=== PATIENT | male | born 2000 | race Two or more races ===

== ENCOUNTER 2022-07-05 13:22 | Emergency (ER) | payer OTHER, SELFPAY ==
[2022-07-05] VITALS (7 sets, daily range): BP systolic 102–125; BP diastolic 60–77; PULSE 57–103; RESP 16–18; TEMP 36.6; O2SAT 92–98
--- NOTE | 2022-07-05 13:25 | W.ED.SEIZURE ---
Documented by User: Wali Longo MD 07/20/22 23:30 HPI - Seizure General: Chief Complaint: Altered Mental Status Stated Complaint: Possible Seizures Time Seen by Provider: 07/05/22 13:24 History of Present Illness: HPI Narrative: Mr. Aguirre is a 21-year-old gentleman with unclear past medical history perhaps history of seizures who presents to the emergency department due to seizure-like activity. Patient himself only provides limited history. He currently complains of frontal headache and this likely relates to trauma. Per EMS report family reports a seizure last night and then 1 more today. Otherwise denies changes in health. Intensity symptoms is mild to moderate. No other specific changes in health, exacerbating, or alleviating factors identified. Per supplemental history upon mother's arrival patient is largely been at his baseline health without known specific provoking factors. He was observed on video camera while at work having a first-time seizure involving falling forward and striking his face followed by tonic extension and seizure. He subsequently had another 1 without trauma today. The one last night was significant enough to knock out 2 of his teeth.There is positive family history for seizure disorders Review of Systems General: Reports: 10 or more systems reviewed and unremarkable except in HPI and below PFSH ED PFSH: Medical History (Updated 07/20/22 @ 23:26 by Wali Longo MD) No significant past medical history Surgical History (Updated 07/20/22 @ 23:26 by Wali Longo MD) No significant past surgical history Social History (Updated 07/20/22 @ 23:26 by Wali Longo MD) Substance/Drug Use: current Physical Exam Const: COMMON NORMALS: alert GENERAL APPEARANCE: cooperative and well developed HENMT: COMMON NORMALS: normocephalic HEAD & SCALP: normocephalic THROAT: posterior oropharynx normal OTHER: Evidence of dental trauma and contusions to face. No corado signs or raccoon eyes. No hemotympanum. No otorrhea or rhinorrhea. Jaw alignment normal. No obvious bony step-offs. No septal hematoma. No evidence of ocular entrapment. Eye: COMMON NORMALS: conjunctivae normal CONJUNCTIVA: Yes conjunctivae normal SCLERA: sclerae normal Neck/C-Spine: COMMON NORMALS: supple GENERAL: Yes trachea midline Resp: COMMON NORMALS: normal respiratory effort and clear to auscultation bilaterally EFFORT & INSPECTION: Yes able to speak in complete sentences AUSCULTATION: clear to auscultation bilaterally Cardio: COMMON NORMALS: regular rate and regular rhythm RATE: regular rate RHYTHM: regular rhythm GI: COMMON NORMALS: Soft to palpation PALPATION: Yes Soft to palpation and No Tenderness to palpation present (GI) Extremity: GENERAL: Yes normal exam except as noted and No edema Neuro: COMMON NORMALS: moves all extremities SENSORIUM/ORIENTATION: Yes alert, Yes Orientation impaired and Yes somnolent Course ED course: - Patient was seen and evaluated by me at bedside - Patient placed on cardiac monitors, IV access obtained - Initial evaluation notable for exam as above, patient was postictal - Labs and xrays personally interpreted by me - Fluids, analgesia given. Haloperidol for nausea vomiting. - Labs notable for mild hemoconcentration. Mild dehydration on metabolic panel. Toxic ingestions negative, no UDS. - Imaging notable for no acute intracranial hemorrhage or fractures identified. - Patient care handed off to Dr. Hughes pending reassessment patient condition and normalization of mental status. Vital Signs: Vital signs: Vital Signs Temperature 97.8 F 07/05/22 14:28 Pulse Rate 62 07/05/22 20:04 Respiratory Rate 16 07/05/22 20:04 Blood Pressure 102/72 07/05/22 20:04 Pulse Oximetry 98 07/05/22 20:04 Oxygen Delivery Az thod 07/05/22 17:01 MDM - Seizure MDM Narrative Medical decision making narrative: 22-year-old male with new onset seizures of uncertain etiology presenting postictal. No clear etiology identified on laboratory studies and no acute traumatic injury requiring intervention identified on CTs. Handed off pending reassessment of mental status and likely already with Keppra. Patient presents here with a seizure he is back at his baseline did discuss CT findings with him we will give him follow-up with neurology likely needs a outpatient MRI we will start him on Keppra he is to follow-up with neurology return if worsening. Medical Records Attestation: I reviewed the patient's medical records. Lab Data Attestation: I reviewed the patient's lab results. Result diagrams: 07/05/22 13:34 07/05/22 13:34 Labs: Radiology Impressions Head CT 07/05/22 13:56 IMPRESSION: 1. No evidence of intracranial hemorrhage or mass effect. 2. Small amount of subpleural patchy low-attenuation change along the LEFT hopkins radiata and posterior limb internal capsule has a subacute to chronic appearance. This is nonspecific but could be followed up with MRI. This is new since 2008. 3. No other significant findings. Cervical Spine CT 07/05/22 16:13 IMPRESSION: 1. No cervical spine fracture identified. Face CT 07/05/22 16:13 IMPRESSION: 1. No fracture identified. Laboratory Results WBC 10.9 10^3/uL (4.0-10.0) H 07/05/22 13:34 RBC 5.66 10^6/uL (4.1-5.3) H 07/05/22 13:34 Hgb 14.8 g/dL (11.7-16.6) 07/05/22 13:34 Hct 47.3 % (42.0-52.0) 07/05/22 13:34 MCV 83.6 fl (80-94) 07/05/22 13:34 MCH 26.1 pg (28.0-34.0) L 07/05/22 13:34 MCHC 31.3 g/dL (30.0-36.0) 07/05/22 13:34 RDW 14.4 % (12.1-15.1) 07/05/22 13:34 Plt Count 236 10^3/cmm (130-400) 07/05/22 13:34 MPV 11.5 fL (7.4-10.4) H 07/05/22 13:34 Neut % (Auto) 77.2 % 07/05/22 13:34 Lymph % (Auto) 14.0 % 07/05/22 13:34 [place] % (Auto) 7.6 % 07/05/22 13:34 Eos % (Auto) 0.5 % 07/05/22 13:34 Baso % (Auto) 0.3 % 07/05/22 13:34 Neut # (Auto) 8.43 10^3/uL (1.8-7.7) H 07/05/22 13:34 Lymph # (Auto) 1.5 10^3/uL (0.8-4.8) 07/05/22 13:34 [place] # (Auto) 0.8 10^3/uL (0.2-0.9) 07/05/22 13:34 Eos # (Auto) 0.1 10^3/uL (0.0-0.8) 07/05/22 13:34 Baso # (Auto) 0.0 10^3/uL (0.0-0.1) 07/05/22 13:34 Nucleated RBC % (auto) 0 % 07/05/22 13:34 Nucleated RBCs # 0.0 /100WBC 07/05/22 13:34 Sodium 136 mmol/L (136-145) 07/05/22 13:34 Potassium 3.9 mmol/L (3.5-5.1) 07/05/22 13:34 Chloride 98 mmol/L (98-107) 07/05/22 13:34 Carbon Dioxide 20 mmol/L (22-29) L 07/05/22 13:34 Anion Gap 21.9 (5-19) H 07/05/22 13:34 BUN 9 mg/dL (6-20) 07/05/22 13:34 Creatinine 0.9 mg/dL (0.7-1.2) 07/05/22 13:34 GFR Calculation 106.5 mL/min (90-130) 07/05/22 13:34 Glucose 208 mg/dL (65-115) H 07/05/22 13:34 Calculated Osmolality 287 mOsm/kg (285-295) 07/05/22 13:34 Calcium 9.5 mg/dL (8.5-10.5) 07/05/22 13:34 Total Bilirubin 0.6 mg/dL (0.15-1.2) 07/05/22 13:34 AST 38 U/L (0-40) 07/05/22 13:34 ALT 13 U/L (0-41) 07/05/22 13:34 Alkaline Phosphatase 87 U/L (40-130) 07/05/22 13:34 Total Protein 8.0 g/dL (6.6-8.7) 07/05/22 13:34 Albumin 5.0 g/dL (3.5-5.2) 07/05/22 13:34 Globulin 3.0 g/dL (1.3-4.6) 07/05/22 13:34 Salicylates 1.2 mg/dL (3-10) L 07/05/22 13:34 Acetaminophen < 5.0 ug/mL (10-30) L 07/05/22 13:34 Ethyl Alcohol < 10 mg/dL (0-10) 07/05/22 13:34 Discharge Plan Discharge Patient Disposition: Home Clinical Impression: Altered mental status, New onset seizure, Head trauma, Dental trauma Condition: Stable Prescriptions: New levetiracetam 500 mg tablet extended release 24 hr 1,000 mg PO DAILY 30 Days Qty: 60 1RF amoxicillin-pot clavulanate 875-125 mg tablet 1 tab PO BID Qty: 20 0RF hydrocodone-acetaminophen 5-325 mg tablet 1 tab PO Q6H PRN (Reason: pain) Qty: 14 0RF No Action valacyclovir 500 mg tablet 500 mg PO DAILY Discharge Orders: Discharge ED (Routine); Ordered 07/05/22 Ordered By: Ike Hughes Referrals: Nicci Melendrez MD [Primary Care Provider] - Patient Instructions: Acute Dental Trauma (ED), New-Onset Seizure in Adults (ED) Activity Restrictions/Additional Instructions: Thank you for visiting the emergency department. You were seen and evaluated for new onset seizures. The exact cause of this is unclear though likely related to underlying seizure disorder and does require further outpatient evaluation. I discussed the case with Dr. Linn and he will be started on Keppra extended release. Additionally I will place order for outpatient follow-up with EEG and MRI given abnormal appearance of CT head. For general seizure precautions do not drive, operate heavy machinery, cook over open flame or grill, climb tall objects, swim in a swimming pool, take a bath in bathtub, or otherwise perform actions that would be dangerous if you were to have another seizure. For your dental trauma I recommend follow-up with a dentist. Please also follow-up with your primary care provider. Please return to the emergency department for worsening symptoms or anything else that you are concerned about a feel needs emergency department evaluation. Coding Level of Care Code ED Diesel Dinkey Operator for Chg Fwd Documented by User: Ike Hughes MD 07/05/22 19:04 HPI - Seizure General: Chief Complaint: Altered Mental Status Stated Complaint: Possible Seizures Time Seen by Provider: 07/05/22 13:24 [facility] ED PFSH: Medical History (Updated 07/20/22 @ 23:26 by Wali Longo MD) No significant past medical history Surgical History (Updated 07/20/22 @ 23:26 by Wali Longo MD) No significant past surgical history Social History (Updated 07/20/22 @ 23:26 by Wali Longo MD) Substance/Drug Use: current Course Vital Signs: Vital signs: Vital Signs Temperature 97.8 F 07/05/22 14:28 Pulse Rate 62 07/05/22 20:04 Respiratory Rate 16 07/05/22 20:04 Blood Pressure 102/72 07/05/22 20:04 Pulse Oximetry 98 07/05/22 20:04 Oxygen Delivery Me thod 07/05/22 17:01 MDM - Seizure MDM Narrative Medical decision making narrative: Patient presents here with a seizure he is back at his baseline did discuss CT findings with him we will give him follow-up with neurology likely needs a outpatient MRI we will start him on Keppra he is to follow-up with neurology return if worsening. Lab Data Result diagrams: 07/05/22 13:34 07/05/22 13:34 Labs: Radiology Impressions Head CT 07/05/22 13:56 IMPRESSION: 1. No evidence of intracranial hemorrhage or mass effect. 2. Small amount of subpleural patchy low-attenuation change along the LEFT hopkins radiata and posterior limb internal capsule has a subacute to chronic appearance. This is nonspecific but could be followed up with MRI. This is new since 2008. 3. No other significant findings. Cervical Spine CT 07/05/22 16:13 IMPRESSION: 1. No cervical spine fracture identified. Face CT 07/05/22 16:13 IMPRESSION: 1. No fracture identified. Laboratory Results WBC 10.9 10^3/uL (4.0-10.0) H 07/05/22 13:34 RBC 5.66 10^6/uL (4.1-5.3) H 07/05/22 13:34 Hgb 14.8 g/dL (11.7-16.6) 07/05/22 13:34 Hct 47.3 % (42.0-52.0) 07/05/22 13:34 MCV 83.6 fl (80-94) 07/05/22 13:34 MCH 26.1 pg (28.0-34.0) L 07/05/22 13:34 MCHC 31.3 g/dL (30.0-36.0) 07/05/22 13:34 RDW 14.4 % (12.1-15.1) 07/05/22 13:34 Plt Count 236 10^3/cmm (130-400) 07/05/22 13:34 MPV 11.5 fL (7.4-10.4) H 07/05/22 13:34 Neut % (Auto) 77.2 % 07/05/22 13:34 Lymph % (Auto) 14.0 % 07/05/22 13:34 [place] % (Auto) 7.6 % 07/05/22 13:34 Eos % (Auto) 0.5 % 07/05/22 13:34 Baso % (Auto) 0.3 % 07/05/22 13:34 Neut # (Auto) 8.43 10^3/uL (1.8-7.7) H 07/05/22 13:34 Lymph # (Auto) 1.5 10^3/uL (0.8-4.8) 07/05/22 13:34 [place] # (Auto) 0.8 10^3/uL (0.2-0.9) 07/05/22 13:34 Eos # (Auto) 0.1 10^3/uL (0.0-0.8) 07/05/22 13:34 Baso # (Auto) 0.0 10^3/uL (0.0-0.1) 07/05/22 13:34 Nucleated RBC % (auto) 0 % 07/05/22 13:34 Nucleated RBCs # 0.0 /100WBC 07/05/22 13:34 Sodium 136 mmol/L (136-145) 07/05/22 13:34 Potassium 3.9 mmol/L (3.5-5.1) 07/05/22 13:34 Chloride 98 mmol/L (98-107) 07/05/22 13:34 Carbon Dioxide 20 mmol/L (22-29) L 07/05/22 13:34 Anion Gap 21.9 (5-19) H 07/05/22 13:34 BUN 9 mg/dL (6-20) 07/05/22 13:34 Creatinine 0.9 mg/dL (0.7-1.2) 07/05/22 13:34 GFR Calculation 106.5 mL/min (90-130) 07/05/22 13:34 Glucose 208 mg/dL (65-115) H 07/05/22 13:34 Calculated Osmolality 287 mOsm/kg (285-295) 07/05/22 13:34 Calcium 9.5 mg/dL (8.5-10.5) 07/05/22 13:34 Total Bilirubin 0.6 mg/dL (0.15-1.2) 07/05/22 13:34 AST 38 U/L (0-40) 07/05/22 13:34 ALT 13 U/L (0-41) 07/05/22 13:34 Alkaline Phosphatase 87 U/L (40-130) 07/05/22 13:34 Total Protein 8.0 g/dL (6.6-8.7) 07/05/22 13:34 Albumin 5.0 g/dL (3.5-5.2) 07/05/22 13:34 Globulin 3.0 g/dL (1.3-4.6) 07/05/22 13:34 Salicylates 1.2 mg/dL (3-10) L 07/05/22 13:34 Acetaminophen < 5.0 ug/mL (10-30) L 07/05/22 13:34 Ethyl Alcohol < 10 mg/dL (0-10) 07/05/22 13:34 Discharge Plan Discharge Patient Disposition: Home Clinical Impression: Altered mental status, New onset seizure, Head trauma, Dental trauma Condition: Stable Prescriptions: New levetiracetam 500 mg tablet extended release 24 hr 1,000 mg PO DAILY 30 Days Qty: 60 1RF amoxicillin-pot clavulanate 875-125 mg tablet 1 tab PO BID Qty: 20 0RF hydrocodone-acetaminophen 5-325 mg tablet 1 tab PO Q6H PRN (Reason: pain) Qty: 14 0RF No Action valacyclovir 500 mg tablet 500 mg PO DAILY Discharge Orders: Discharge ED (Routine); Ordered 07/05/22 Ordered By: Ike Hughes Referrals: Nicci Melendrez MD [Primary Care Provider] - Patient Instructions: Acute Dental Trauma (ED), New-Onset Seizure in Adults (ED) Activity Restrictions/Additional Instructions: Thank you for visiting the emergency department. You were seen and evaluated for new onset seizures. The exact cause of this is unclear though likely related to underlying seizure disorder and does require further outpatient evaluation. I discussed the case with Dr. Linn and he will be started on Keppra extended release. Additionally I will place order for outpatient follow-up with EEG and MRI given abnormal appearance of CT head. For general seizure precautions do not drive, operate heavy machinery, cook over open flame or grill, climb tall objects, swim in a swimming pool, take a bath in bathtub, or otherwise perform actions that would be dangerous if you were to have another seizure. For your dental trauma I recommend follow-up with a dentist. Please also follow-up with your primary care provider. Please return to the emergency department for worsening symptoms or anything else that you are concerned about a feel needs emergency department evaluation. Coding Level of Care Code ED Diesel Dinkey Operator for Jah Phillips
[2022-07-05 13:47] LABS: Basophils % 0.3 %; Eosinophils # 0.1 10^3/uL (0.0-0.8); Eosinophils % 0.5 %; Hematocrit 47.3 % (42.0-52.0); Hemoglobin 14.8 g/dL (11.7-16.6); Lymphocytes # 1.5 10^3/uL (0.8-4.8); Mean Corpuscular HGB Conc 31.3 g/dL (30.0-36.0); Mean Corpuscular Hemoglobin 26.1 pg (28.0-34.0); Mean Corpuscular Volume 83.6 fl (80-94); Mean Platelet Volume 11.5 fL (7.4-10.4); Monocytes # 0.8 10^3/uL (0.2-0.9); Monocytes % 7.6 %; Neutrophils # 8.43 10^3/uL (1.8-7.7); Neutrophils % 77.2 %; Nucleated Red Blood Cells % 0 %; Platelet Count 236 10^3/cmm (130-400); Red Blood Count 5.66 10^6/uL (4.1-5.3); Red Cell Distribution Width 14.4 % (12.1-15.1); White Blood Count 10.9 10^3/uL (4.0-10.0)
--- NOTE | 2022-07-05 13:56 | CT_ITS ---
WS: [id number] CT HEAD TECHNIQUE: Noncontrast CT of the head obtained from the skullbase to the vertex. CLINICAL INFORMATION: seizure COMPARISON: 6 5,009 DLP: 1044.[address] scans at [facility] use at least one of these dose optimization techniques: automated e xposure control; mA and/or kV adjustment per patient size (includes targeted exams where dose is matc hed to clinical indication); or iterative reconstruction. FINDINGS: No evidence of intracranial hemorrhage or mass effect. Ventricular system and basal cisterns are em nt. Small amount of subtle patchy low-attenuation change along the LEFT hopkins radiata and posterior limb internal capsule has a subacute to chronic appearance. This could be followed up with MRI. This is new since 2008 Paranasal sinuses and mastoid air cells are well aerated. .Normal visualized soft tissues. CT/CT head wo con* [id number] IMPRESSION: 1. No evidence of intracranial hemorrhage or mass effect. 2. Small amount of subpleural patchy low-attenuation change along the LEFT cor lore radiata and posterior limb internal capsule has a subacute to chronic appea brian. This is nonspecific but could be followed up with MRI. This is new since 2008. 3. No other significant findings.
[2022-07-05 14:17] LABS: Alanine Aminotransferase 13 U/L (0-41); Alkaline Phosphatase 87 U/L (40-130); Anion Gap 21.9 (5-19); Aspartate Amino Transferase 38 U/L (0-40); Blood Urea Nitrogen 9 mg/dL (6-20); Calcium 9.5 mg/dL (8.5-10.5); Carbon Dioxide 20 mmol/L (22-29); Chloride 98 mmol/L (98-107); Glomerular Filtration Rate 106.5 mL/min (90-130); Glucose 208 mg/dL (65-115); Osmolality Calculated 287 mOsm/kg (285-295); Potassium 3.9 mmol/L (3.5-5.1); Salicylate 1.2 mg/dL (3-10); Sodium 136 mmol/L (136-145); Total Bilirubin 0.6 mg/dL (0.15-1.2)
[2022-07-05 14:22] LABS: Acetaminophen < 5.0 ug/mL (10-30); Alcohol Level < 10 mg/dL (0-10)
[2022-07-05] MEDS: haloperidol inj 5 mg/mL INJ 1 mL 2 MG IVP (15:01)
--- NOTE | 2022-07-05 15:08 | PC.NURSE ---
PT HAD FALLEN LAST NIGHT AT WORK AND HIT HIS FACE ON SHELVE. PT HAD SEIZURE LIKE ACTIVITY FOR APPROX 5 MIN PER VIDEO FROM MOTHER. PT HIT SHELF AND GROUND THEN STARTED TO CLINCH AND POSTURE.
--- NOTE | 2022-07-05 16:13 | CTR_ITS ---
PROCEDURE INFORMATION: Exam: CT Cervical Spine Without Contrast Exam date and time: 07/05/2022 4:31 PM Age: 21 years old Clinical indication: Injury or trauma; Fall; Blunt trauma; Additional info: Fall, head trauma, S/P seizure, fell face forward TECHNIQUE: Imaging protocol: Computed tomography of the cervical spine without contrast. Radiation optimization: All CT scans at this facility use at least one of these dose optimization techniques: automated exposure control; mA and/or kV adjustment per patient size (includes targeted exams where dose is matched to clinical indication); or iterative reconstruction. COMPARISON: CT head wo con* [id number] 07/05/2022 2:09 PM RADIATION DOSE METRICS: Total DLP (mGy-cm): 1329.77 FINDINGS: Bones/joints: No acute fracture. Normal alignment. No significant disc protrusion. No severe spinal canal stenosis. Dental: Severe dental disease with multiple cavities and upper left periapical infections. Lungs: Lung apices are normal. Soft tissues: Unremarkable. CT/CT cervical spin wo con* [id number] IMPRESSION: 1. No cervical spine fracture identified.
--- NOTE | 2022-07-05 16:13 | CTR_ITS ---
PROCEDURE INFORMATION: Exam: CT Maxillofacial Without Contrast Exam date and time: 07/05/2022 4:31 PM Age: 21 years old Clinical indication: Injury or trauma; Other: Seizure with fall to face; Blunt trauma (contusions or hematomas); Eyelid; Upper left; Additional info: Fall, head trauma TECHNIQUE: Imaging protocol: Computed tomography of the of the face without contrast. Radiation optimization: All CT scans at this facility use at least one of these dose optimization techniques: automated exposure control; mA and/or kV adjustment per patient size (includes targeted exams where dose is matched to clinical indication); or iterative reconstruction. COMPARISON: CT head wo con* [id number] 07/05/2022 2:09 PM RADIATION DOSE METRICS: Total DLP (mGy-cm): 1329.77 FINDINGS: Orbital cavities: Orbits are normal. Globes are unremarkable. Bones/joints: No acute fracture. Paranasal sinuses: Mucosal thickening in the bilateral maxillary sinuses. The other sinuses are clear. No air-fluid level. Soft tissues: Unremarkable. Dental: Multiple upper and lower dental caries. Periapical infection involving the upper left 4th tooth, 1st molar, and 3rd more. CT/CT facial bones wo con* [id number] IMPRESSION: 1. No fracture identified.
[2022-07-05] MEDS: lactated ringers 1,000 ML 999 ML IV (16:45)
[2022-07-05] MEDS: acetaminophen 1,000 MG/100 ML PIGGYBACK 400 MG IV (17:30)
--- NOTE | 2022-07-06 14:27 | DCPLANNER ---
Addendum entered by Erin Kelly 10/09/22 15:35: Patient had a follow up appointment at neurology for an EEG - patient did attend appointment Patient had a follow up appointment at neurology for follow up - patient did not attend appointment Addendum entered by Erin Kelly 07/12/22 14:42: Patient has a follow up appointment scheduled for Monday, August 08, 2022 at 10:[address] Linn at neurology. Clinic will call patient with appointment information. Addendum entered by Erin Kelly 07/11/22 08:56: Patient has an EEG scheduled for June at 8:00 for an EEG. Clinic will call patient with appointment information. Original Note: ict account manager had message to schedule an outpatient EEG and a follow up appointment for patient with neurology. ict account manager faxed a signed order to the office of neurology. ict account manager sent patients information to the front office staff at neurology. Patients information will be printed and reviewed. Clinic will call patient with appointment information.
--- NOTE | 2022-07-06 14:38 | DCPLANNER ---
Addendum entered by Erin Kelly 10/18/22 10:54: Patient did attend appointment scheduled for MRI Patient did not attend follow up appointment scheduled with [facility] with Dr. Tan. Addendum entered by Erin Kelly 07/18/22 08:10: client experience manager called [facility], spoke with Kelly, gave clinic patients information. A follow up appointment was scheduled for Tuesday, August 02, 2022 at 11:[address] Tan. client experience manager attempted to call patient and give patient the appointment information, unable to speak with patient and unable to leave a voicemail. client experience manager mailed a letter to patient with the appointment information. Addendum entered by Erin Kelly 07/10/22 10:43: client experience manager has meesage to schedule an outpatient MRI, director case spoke with patients mother who gave director case an updated phone number. client experience manager faxed signed order to centralized scheduling, who will call patient with appointment information. After the MRI is scheduled, director case will call the office of Dr. Tna to schedule a follow up appointment to go over the MRI results. Original Note: client experience manager had message to schedule an outpatient MRI and an CT head. client experience manager called patient to confirm that patient wanted to have the test ordered and to confirm who patient sees for primary care. client experience manager called phone number [phone] this is a non working number. client experience manager also called phone number [phone] - unable to speak with patient and unable to leave a voicemail for patient.
== END 2022-07-05 20:05 | disposition home or self-care (01) ==
PROVIDERS: Emergency Medicine; Emergency Provider Emergency Medicine; PCP Family Medicine
DX: R41.82 Altered mental status, unspecified (principal); R56.9 Unspecified convulsions; S09.90XA Unspecified injury of head, initial encounter; W18.30XA Fall on same level, unspecified, initial encounter; S00.83XA Contusion of other part of head, initial encounter; S03.2XXA Dislocation of tooth, initial encounter
CPT/HCPCS: 70450; 70486; 72125; 80053; 80307; 85025; 96365; 96367; 96375; 99285; J1630; J1953

== ENCOUNTER 2022-07-27 13:34 | Outpatient (CLI) | payer OTHER, SELFPAY ==
--- NOTE | 2022-07-27 13:50 | MR_ITS ---
WS: [id number] MRI HEAD WITH CONTRAST TECHNIQUE: Sagittal T1, T2 axial, T2 axial FLAIR, axial susceptibility weighted imaging, axial diffus ion weighted images, and coronal T2 images were obtained. Pre and post-T1 axial and post T1 coronal i mages. ADC and FSPGR images. CLINICAL INFORMATION: NEW ONSET SEIZURE COMPARISON: CT July 05, 2022 FINDINGS: No evidence of restricted diffusion to suggest acute ischemia. Ventricular system and basal cisterns are patent. Hazy periventricular white matter changes about the posterior lateral ventricles and occi pital horns. This is nonspecific in a patient this age but can be seen with prior infectious/inflamma tory or demyelinating etiologies. Paranasal sinuses and mastoid air cells are well aerated. Normal po sterior fossa. Normal vascular flow voids at the skull base. No extra-axial fluid collections. No ovidio dence of mass or mass effect. No hemosiderin on susceptibly weighted images. Normal optic chiasm and pituitary infundibulum. Temporal lobes and hippocampal formations are normal in appearance. No evidence of mesial temporal sclerosis. No abnormal intracranial enhancement. Normal dural venous sinuses. Incidental LEFT middle cranial fos sa arachnoid cyst measuring 1.1 x 2.1 x 1.6 cm MR/MR head wo/w con [id number] IMPRESSION: 1. No evidence of restricted diffusion to suggest acute ischemia. 2. Mild hazy periventricular white matter changes about the posterior lateral ventricles and occipital horns. Findings are nonspecific in a patient this age but can be seen with prior infectious or inflammatory etiologies and demyelinat ing disease. Recommend clinical correlation. 3. No significant parenchymal volume loss. 4. No hemosiderin on the susceptibly weighted images. 5. Temporal lobes and hippocampal formations are normal in appearance. No evid ence of mesial temporal sclerosis. 6. No abnormal gadolinium enhancement. 7. Incidental LEFT middle cranial fossa arachnoid cyst measuring 1.1 x 2.1 x 1 .6 cm
[2022-07-27] MEDS: gadobenate dimeglumine 20 mL vial IV (14:38)
== END 2022-07-27 13:35 | disposition home or self-care (01) ==
PROVIDERS: Visit Provider Emergency Medicine
DX: R56.9 Unspecified convulsions (principal)
CPT/HCPCS: 70553

== ENCOUNTER 2022-12-03 19:21 | Inpatient (IN) | payer OTHER, SELFPAY ==
[2022-12-03 19:25] VITALS: RESP 15; BMI 17.4
--- NOTE | 2022-12-03 19:26 | XRR_ITS ---
PROCEDURE INFORMATION: Exam: XR Chest Exam date and time: 12/03/2022 8:20 PM Age: 22 years old Clinical indication: Device placement; Ett placement (vent status); Additional info: Unresponsive TECHNIQUE: Imaging protocol: Radiologic exam of the chest. Views: 1 view. COMPARISON: CT cervical spin wo con* [id number] 07/05/2022 4:31 PM FINDINGS: Tubes, catheters and devices: Endotracheal tube tip somewhat high in position 7.3 cm above the eleazar. Lungs: Right upper lobe pneumonia. Pleural spaces: Unremarkable. No pleural effusion. No pneumothorax. Heart/Mediastinum: Unremarkable. No cardiomegaly. Bones/joints: Unremarkable. XR/XR chest 1V portable [id number] IMPRESSION: 1. Endotracheal tube tip somewhat high in position 7.3 cm above the eleazar. 2. Right upper lobe pneumonia.
--- NOTE | 2022-12-03 19:26 | CTR_ITS ---
PROCEDURE INFORMATION: Exam: CT Head Without Contrast Exam date and time: 12/03/2022 8:29 PM Age: 22 years old Clinical indication: Other: Unresponsive, intubated TECHNIQUE: Imaging protocol: Computed tomography of the head without contrast. Radiation optimization: All CT scans at this facility use at least one of these dose optimization techniques: automated exposure control; mA and/or kV adjustment per patient size (includes targeted exams where dose is matched to clinical indication); or iterative reconstruction. Other protocol: This patient has received 3 known CTs and 0 known cardiac nuclear medicine studies in the 12 months prior to the current study. COMPARISON: MR head wo/w con [id number] 07/27/2022 2:03 PM RADIATION DOSE METRICS: Total DLP (mGy-cm): 1204.8 FINDINGS: Brain: Minimal decreased attenuation of the periventricular white matter largely in the left hopkins radiata similar to prior exam likely chronic,. 16 mm extra-axial prominent fluid density in the anterior aspect of the left middle cranial fossa, similar to prior exam suggestive of a small arachnoid cyst. Cerebral ventricles: No ventriculomegaly. Paranasal sinuses: Visualized sinuses are unremarkable. No fluid levels. Mastoid air cells: Visualized mastoid air cells are well aerated. Bones/joints: Unremarkable. No acute fracture. Soft tissues: Unremarkable. CT/CT head wo con* [id number] IMPRESSION: 1. Negative for intracranial hemorrhage. 2. Minimal decreased attenuation of the periventricular white matter largely in the left hopkins radiata similar to prior exam likely chronic, 3. 16 mm extra-axial prominent fluid density in the anterior aspect of the left middle cranial fossa, similar to prior exam suggestive of a small arachnoid cyst.
[2022-12-03 19:31] LABS: ABG PCO2 57.6 mmHg (35-45); ABG PH Result 7.23 (7.35-7.45); Arterial Blood Gas Hematocrit 38.7 % (42-52); Base Excess ABG -4.3 mmol/L (-2.0-2.0); Blood Gas Allen Test Pos; Blood Gas Sample Site Radial, right; Blood Gas Sample Type Arterial; Blood Gas Tidal Volume 0.45; Oxygen Device VENT
[2022-12-03 19:35] LABS: Basophils # 0.1 10^3/uL (0.0-0.1); Basophils % 0.4 %; Eosinophils # 0.2 10^3/uL (0.0-0.8); Hematocrit 40.5 % (42.0-52.0); Lymphocytes # 2.2 10^3/uL (0.8-4.8); Lymphocytes % 14.3 %; Mean Corpuscular HGB Conc 29.6 g/dL (30.0-36.0); Mean Corpuscular Hemoglobin 25.1 pg (28.0-34.0); Mean Corpuscular Volume 84.7 fl (80-94); Mean Platelet Volume 12.8 fL (7.4-10.4); Monocytes # 0.2 10^3/uL (0.2-0.9); Monocytes % 1.5 %; Neutrophils # 12.78 10^3/uL (1.8-7.7); Neutrophils % 81.8 %; Nucleated Red Blood Cells % 0 %; Platelet Count 230 10^3/cmm (130-400); Red Blood Count 4.78 10^6/uL (4.1-5.3); Red Cell Distribution Width 14.5 % (12.1-15.1); White Blood Count 15.6 10^3/uL (4.0-10.0)
[2022-12-03] MEDS: propofol 1,000 MG/100 ML INJ 1.76 MG IV (19:38)
[2022-12-03] MEDS: sodium chloride 0.9% 1,000 ML 999 ML IV ×2 (19:42→20:40)
[2022-12-03 19:43] LABS: Ketone (Acetest) Serum Negative (Negative)
[2022-12-03 19:47] LABS: Add Urine Microscopic? NO; Charge for UA Resulting for Rev
[2022-12-03 19:51] LABS: Troponin(5th) Baseline 48 ng/L (0-15)
[2022-12-03 19:52] LABS: Alanine Aminotransferase 10 U/L (0-41); Alkaline Phosphatase 92 U/L (40-130); Anion Gap 17.2 (5-19); Aspartate Amino Transferase 13 U/L (0-40); Blood Urea Nitrogen 11 mg/dL (6-20); Calcium 7.8 mg/dL (8.5-10.5); Carbon Dioxide 24 mmol/L (22-29); Chloride 102 mmol/L (98-107); Creatine Phosphokinase 69 U/L (39-308); Globulin 2.2 g/dL (1.3-4.6); Glomerular Filtration Rate 105.5 mL/min (90-130); Glucose 359 mg/dL (65-115); Magnesium 1.9 mg/dL (1.7-2.3); Osmolality Calculated 302 mOsm/kg (285-295); Phosphorus 6.7 mg/dL (2.5-4.5); Potassium 4.2 mmol/L (3.5-5.1); Sodium 139 mmol/L (136-145); Total Bilirubin 0.3 mg/dL (0.15-1.2); Total Protein 6.2 g/dL (6.6-8.7)
[2022-12-03 19:53] LABS: Glucose Urine UA 4+ (Normal); Protein Urine Neg (Negative); Urine Appearance Clear (CLEAR); Urine Color Colorless (Yellow); pH Urine 6 (5-7)
[2022-12-03 19:54] LABS: Bilirubin Urine Neg (Negative); Blood Urine Neg (Negative); Ketones Urine Negative (Negative); Leukocyte Esterase Urine Negative (Negative); Nitrate Urine Negative (Negative); Urobilinogen Urine Neg (Negative)
[2022-12-03 19:54] LABS: Alcohol Level < 10 mg/dL (0-10)
[2022-12-03 20:00] VITALS: PULSE 69; RESP 18; O2SAT 100
[2022-12-03 20:10] LABS: Amphetamines Screen Urine Negative (Negative); Barbiturates Screen Urine Negative (Negative); Benzodiazepines Screen Urine Positive (Negative); Cocaine Screen Urine Negative (Negative); Opiate Screen Urine Negative (Negative); PCP Screen Urine Negative (Negative); THC Screen Urine Positive (Negative)
[2022-12-03 20:14] LABS: Influenza A by IFA negative (Negative); Influenza B by IFA negative (Negative); SARS Covid-2 Antigen negative (Negative)
[2022-12-03] MEDS: midazolam 1 mg/mL INJ 2 mL 3 MG IVP (20:21)
--- NOTE | 2022-12-03 20:44 | W.ED.GENADLT ---
HPI - General Adult General: Chief complaint: General Medical Stated complaint: dka Time Seen by Provider: 12/03/22 19:22 Source: EMS History of Present Illness: 22-year-old male presenting after being found unresponsive by his parents. The patient would not wake to sternal rub evidently. He maintained a pulse. EMS was called. The patient did not respond to IV Narcan, and had an initial pulse ox in the 30 percent range. He was successfully bagged up to the 80s using bag valve mask, and intubated following. Blood sugar was found to be in the 400s on arrival of EMS. He has no history of diabetes. He does have a history of seizure disorder. Unknown if the patient has missed medication. Onset (ago): minute(s) Radiation: other Quality: other Pain Consistency: other Relieving factors: other Exacerbating factors: other Treatments prior to arrival: other Review of Systems General: Reports: ROS unobtainable due to endotracheal tube, ROS unobtainable due to medical condition and ROS unobtainable due to mental status [facility] ED PFSH: Medical History No significant past medical history Psychiatric care Social anxiety disorder Surgical History No significant past surgical history Physical Exam Const: ORIENTATION/CONSCIOUSNESS: Yes Other orientation findings (Unresponsive) HENMT: COMMON NORMALS: normocephalic, hearing grossly normal bilaterally and Normal external nose present HEAD & SCALP: normocephalic FACE & SINUS: normal facial exam NOSE: Normal external nose present Eye: PUPIL: Yes Fixed pupils (Small) and Yes Pupils not reactive Neck/C-Spine: GENERAL: Yes trachea midline Chest: CHEST: Yes Symmetrical chest wall rise Resp: COMMON NORMALS: clear to auscultation bilaterally AUSCULTATION: clear to auscultation bilaterally Cardio: COMMON NORMALS: regular rate and regular rhythm RATE: regular rate RHYTHM: regular rhythm GI: COMMON NORMALS: Soft to palpation INSPECTION: Yes normal to inspection PALPATION: Yes Soft to palpation : PENIS: normal penis Extremity: COMMON NORMALS: no pedal edema Neuro: CARRIE COMA SCALE: document GCS findings Carrie coma scale eye opening: None Carrie coma scale motor response: None Skin: COMMON NORMALS: no rashes or lesions noted GENERAL SKIN EXAM: no rashes or lesions noted Course Vital Signs: Vital signs: Vital Signs Pulse Rate 53 L 12/03/22 22:00 Respiratory Rate 18 12/03/22 22:00 Blood Pressure 98/69 12/03/22 22:00 Pulse Oximetry 100 12/03/22 22:00 Oxygen Delivery Me thod 12/04/22 00:15 Fraction of Inspir ed Oxygen 90 12/03/22 19:25 MDM - General Adult Medical Decision Making Patient presents intubated and sedated. No purposeful movements.He is kept on sedation using propofol and fentanyl. CBC shows a white blood cell count of 15.6. BMP shows a blood sugar of 359. Anion gap is only 17. Lactate is 4. Blood gas shows a pH of 7.23 with PCO2 retention of 58. Normal bicarbonate of 24. His CRP is only 3. Drug screen is positive for benzodiazepines, which the patient is prescribed. Serum ketones is negative. Flu and COVID are negative.Head CT appears nonacute. The patient has a right upper lobe pneumonia on chest x-ray. He is given vancomycin and cefepime for this after blood cultures. We have no neurology here. We have no critical care currently. Given his young age, we will attempt transfer to a higher level of care given these facts. Family is counseled. Spoke with [facility] in [place]. I have no ICU beds available. Did speak with [facility] in [place]. They have an ICU bed available. [facility] is willing to take patient in transfer with neurology consult there. Awaiting a bed assignment for transfer. Patient's blood sugar is now 100. Somewhat strange. Blood gases improved. Current vitals heart rate 58, blood pressure 101/72. Saturations are 100% After the patient been accepted at [facility], and report to the ICU was called. Air transport was called for EMS transport to the ICU. In the meantime, the patient continued to be somewhat bradycardic. This was concerning, so low-dose phenylephrine was started. Shortly after starting the phenylephrine for what ever reason, the patient woke up. He was completely awake, asked for a pen and paper so that he could write. He admitted to taking his brothers methadone, because he was worried about withdrawing from Xanax he says. The patient was completely alert and oriented, asking for water, etc. while on the ventilator. At this point, the cause was determined. He wished to be extubated. As he was making sense, essentially with a completely intact sensorium, extubation was performed in the ER. He did well for 30 minutes on nasal cannula oxygenation at low-dose. Following this, he began to get sleepy again, and oxygen saturations dropped. He was placed on 10 L nonrebreather, and 1 mg of Narcan was given with resolution of his sleepiness, and improvement in his hypoxia although it caused some tachycardia. He was given a breathing treatment with improvement in his pulse ox as well. His sensorium remained intact. We spoke with [facility], and canceled his ICU bed there, since it did not appear neurology was needed at this point as we had a cause. He will go to the ICU here tonight for observation and continued respiratory support. Narcan drip was started given the long half-life of methadone. Lab Data 12/03/22 19:12/03/22 Radiology Impressions Chest X-Ray 12/03/22 IMPRESSION: 1. Endotracheal tube tip somewhat high in position 7.3 cm above the eleazar. 2. Right upper lobe pneumonia. Head CT 12/03/22 IMPRESSION: 1. Negative for intracranial hemorrhage. 2. Minimal decreased attenuation of the periventricular white matter largely in the left hopkins radiata similar to prior exam likely chronic, 3. 16 mm extra-axial prominent fluid density in the anterior aspect of the left middle cranial fossa, similar to prior exam suggestive of a small arachnoid cyst. Laboratory Results WBC 15.6 10^3/uL (4.0-10.0) H 12/03/22: RBC 4.78 10^6/uL (4.1-5.3) 12/03/22 Hgb 12.0 g/dL (11.7-16.6) 12/03/22 Hct 40.5 % (42.0-52.0) L 12/03/22 MCV 84.7 fl (80-94) 12/03/22 MCH 25.1 pg (28.0-34.0) L 12/03/22 MCHC 29.6 g/dL (30.0-36.0) L 12/03/22 RDW 14.5 % (12.1-15.1) 12/03/22 19:21 Plt Count 230 10^3/cmm (130-400) 12/03/22 19:21 MPV 12.8 fL (7.4-10.4) H 12/03/22 19:21 Neut % (Auto) 81.8 % 12/03/22 19:21 Lymph % (Auto) 14.3 % 12/03/22 19:21 Latimer % (Auto) 1.5 % 12/03/22 19:21 Eos % (Auto) 1.0 % 12/03/22 19:21 Baso % (Auto) 0.4 % 12/03/22 19:21 Neut # (Auto) 12.78 10^3/uL (1.8-7.7) H 12/03/22 19:21 Lymph # (Auto) 2.2 10^3/uL (0.8-4.8) 12/03/22 19:21 Latimer # (Auto) 0.2 10^3/uL (0.2-0.9) 12/03/22 19:21 Eos # (Auto) 0.2 10^3/uL (0.0-0.8) 12/03/22 19:21 Baso # (Auto) 0.1 10^3/uL (0.0-0.1) 12/03/22 19:21 Nucleated RBC % (auto) 0 % 12/03/22 19: Nucleated RBCs # 0.0 /100WBC 12/03/22 19:21 D-Dimer 0.50 ug/mIFEU (0-0.59) 12/03/22 19:21 Specimen Type Arterial 12/03/22 20:42 Sample Site Radial, right 12/03/22 20:42 ABG pH 7.38 (7.35-7.45) 12/03/22 20:42 ABG pCO2 40.9 mmHg (35-45) 12/03/22 20:42 ABG pO2 79.7 mmHg (80.0-100.0) L 12/03/22 20:42 ABG HCO3 24.0 mmol/L (22-26) 12/03/22 20:42 ABG Base Excess -1.2 mmol/L (-2.0-2.0) 12/03/22 20:42 Nicholas Test Pos 12/03/22 20:42 Hematocrit 38.4 % (42-52) L 12/03/22 20:42 O2 Delivery Device Vent 12/03/22 20:42 FiO2 70.0 % 12/03/22 20:42 Tidal Volume 0.45 12/03/22 19:23 PEEP 8.0 cmH20 12/03/22 20:42 Director Of Public Health ID Amanda 12/03/22 20:42 Sodium 139 mmol/L (136-145) 12/03/22 19:21 Potassium 4.2 mmol/L (3.5-5.1) 12/03/22 19:21 Chloride 102 mmol/L (98-107) 12/03/22 19:21 Carbon Dioxide 24 mmol/L (22-29) 12/03/22 19:21 Anion Gap 17.2 (5-19) 12/03/22 19:21 BUN 11 mg/dL (6-20) 12/03/22 19:21 Creatinine 0.9 mg/dL (0.7-1.2) 12/03/22 19:21 GFR Calculation 105.5 mL/min (90-130) 12/03/22 19:21 Glucose 359 mg/dL (65-115) H 12/03/22 19:21 POC Glucose 100 mg/dL (70-110) 12/03/22 21:30 Calculated Osmolality 302 mOsm/kg (285-295) H 12/03/22 19:21 Lactate 4.0 mmol/L (0.5-2.2) H 12/03/22 19:21 Calcium 7.8 mg/dL (8.5-10.5) L 12/03/22 19:21 Phosphorus 6.7 mg/dL (2.5-4.5) H 12/03/22 19:21 Magnesium 1.9 mg/dL (1.7-2.3) 12/03/22 19:21 Total Bilirubin 0.3 mg/dL (0.15-1.2) 12/03/22 19:21 AST 13 U/L (0-40) 12/03/22 19:21 ALT 10 U/L (0-41) 12/03/22 19:21 Alkaline Phosphatase 92 U/L (40-130) 12/03/22 19:21 Creatine Kinase 69 U/L (39-308) 12/03/22 19:21 Troponin T Baseline 48 ng/L (0-15) H 12/03/22 19:21 Troponin T 120 Minute 64.11 ng/L (0-15) H 12/03/22 21:21 Delta Troponin T 16.11 ABS# (0-10) H* 12/03/22 21:21 C-Reactive Protein 3.0 mg/L (0.0-4.9) 12/03/22 19:21 Total Protein 6.2 g/dL (6.6-8.7) L 12/03/22 19:21 Albumin 4.0 g/dL (3.5-5.2) 12/03/22 19:21 Globulin 2.2 g/dL (1.3-4.6) 12/03/22 19:21 Urine Color Colorless (Yellow) 12/03/22 19:38 Urine Appearance Clear (CLEAR) 12/03/22 19:38 Urine pH 6 (5-7) 12/03/22 19:38 Ur Specific [place] 1.010 (1.005-1.030) 12/03/22 19:38 Urine Protein Neg (Negative) 12/03/22 19:38 Urine Glucose (UA) 4+ (Normal) H 12/03/22 19:38 Urine Ketones Negative (Negative) 12/03/22 19:38 Urine Blood Neg (Negative) 12/03/22 19:38 Urine Nitrate Negative (Negative) 12/03/22 19:38 Urine Bilirubin Neg (Negative) 12/03/22 19:38 Urine Urobilinogen Neg mg/dL (Negative) 12/03/22 19:38 Ur Leukocyte Esterase Negative (Negative) 12/03/22 19:38 Urine Opiates Screen Negative ng/mL (Negative) 12/03/22 19:38 Ur Barbiturates Screen Negative ng/mL (Negative) 12/03/22 19:38 Ur Phencyclidine Scrn Negative ng/mL (Negative) 12/03/22 19:38 Ur Amphetamines Screen Negative ng/mL (Negative) 12/03/22 19:38 U Benzodiazepines Scrn Positive ng/mL (Negative) H 12/03/22 19:38 Urine Cocaine Screen Negative ng/mL (Negative) 12/03/22 19:38 U Marijuana (THC) Screen Positive ng/mL (Negative) H 12/03/22 19:38 Ethyl Alcohol < 10 mg/dL (0-10) 12/03/22 19:21 Serum Ketones Negative (Negative) 12/03/22 19:21 Influenza Type A Ag negative (Negative) 12/03/22 19:45 Influenza Type B Ag negative (Negative) 12/03/22 19:45 SARS-CoV-2 Ag (Rapid) negative (Negative) 12/03/22 19:45 Critical Care Time Critical Care Time: Critical Care Time: Yes Total Critical Care Time: 50 Attestation: This case had a high probability of a clinically significant, sudden, or life threatening deterioration of this patient's condition which required my full and direct attention, intervention and personal management. Time is independent of any procedures performed. Discharge Plan Discharge Patient Disposition: Admitted As Inpatient Admit Provider: Brenden Mosquera Clinical Impression: Acute respiratory failure with hypoxia and hypercapnia, Opiate or related narcotic overdose Condition: Fair Coding Level of Care Code ED Dining Room Supervisor for Chg Fwd Exam Comprehensive
[2022-12-03 20:54] LABS: ABG PCO2 40.9 mmHg (35-45); ABG PH Result 7.38 (7.35-7.45); Arterial Blood Gas Hematocrit 38.4 % (42-52); Base Excess ABG -1.2 mmol/L (-2.0-2.0); Blood Gas Allen Test Pos; Blood Gas Sample Site Radial, right; Blood Gas Sample Type Arterial; Oxygen Device VENT; PO2 ABG 79.7 mmHg (80.0-100.0)
[2022-12-03 21:00] VITALS: BP 98/68; PULSE 64; RESP 18; O2SAT 100
[2022-12-03] MEDS: cefepime 1,000 MG in sodium chloride 0.9% (plus) 50 ML 100 MG IV (21:02)
[2022-12-03] MEDS: vancomycin 1,000 MG in sodium chloride 0.9% 250 ML 250 MG IV (21:02)
--- NOTE | 2022-12-03 21:28 | ECG_ITS ---
[facility] Test Date: 2022-12-03 Pat Name: Orlin Aguirre Department: Room: Gender: Male Nondestructive Tester: : 2000 Requested By: Latrell Wilcox Order Number: [id number] Shana MD: Eri Montanez M.D. Measurements Intervals [place] Rate: 57 P: 79 [place]: 134 QRS: 81 QRSD: 102 T: 72 QT: 468 QTc: 457 Interpretive Statements SINUS BRADYCARDIA MINIMAL VOLTAGE CRITERIA FOR LVH, CONSIDER NORMAL VARIANT [MEETS CRITERIA IN ONE OF: R(aVL), S(V1), R(V5), R(V5/V6)+S(V1)] PROLONGED QT INTERVAL No previous ECG available for comparison Electronically Signed On 12-04-2022 22:23:48 VASCULAR SURGERY PHYSICIAN by Eri Montanez M.D. [email or web address]
[2022-12-03 21:33] LABS: Glucose Point of Care 100 mg/dL (70-110)
[2022-12-03 21:57] LABS: Troponin 5 2HR 64.11 ng/L (0-15)
[2022-12-03 22:00] VITALS: BP 98/69; PULSE 53; RESP 18; O2SAT 100
[2022-12-03 22:01] LABS: Troponin 5 2HR Delta 16.11 ABS# (0-10)
[2022-12-03] MEDS: sodium chloride 0.9% 250 ML 200 ML IV (22:29)
[2022-12-03] MEDS: phenylephrine inj 25 MG in sodium chloride 0.9% 250 ML 24.24 MG IV (22:52)
--- NOTE | 2022-12-03 23:26 | P.HP_ITS ---
Providers/Chief Complaint Admitting Physician: Brenden Mosquera MD Primary Care Provider: Nicci Melendrez MD Chief Complaint: dka History of Present Illness Orlin Aguirre is a 22 year old male with a past medical history significant for seizure disorder, anxiety, and marijuana use who presents with unresponsiveness after being found by his parents at home. EMS was called patient was given IV Narcan without initial response. His reported SPO2 in the field was 30%. He was bagged and then intubated. He was found to have hyperglycemia with blood sugars in the 400s per EMS. He has no known history of diabetes. Patient reportedly took his brothers methadone earlier today. Is unclear how much he took. He apparently was trying to get off of his Xanax but was afraid of withdrawal symptoms. Mentation initially improved in the emergency department for which extubation was performed. This was followed by worsening hypoxia and decreasing mentation as time went on. Additional Narcan push with some improvement in hypoxia followed by Narcan drip initiated. Patient remains very lethargic and unable to provide further history on my evaluation. Attempted to obtain past medical, past surgical, social, and family history however his clinical status limited further history. Family not currently present for collateral information but is supposed to be returning later tonight. Review of Systems Narrative: Attempted to obtain a complete review of systems but was unable to due to patient's severe lethargy. Medications/Allergies Home Medications Medication Instructions Recorded Confirmed Last Taken Type levetiracetam 500 mg 1,000 mg PO DAILY 30 days #60 tabs 07/05/22 10/26/22 Unknown Rx tablet,extended release 24 hr alprazolam 0.5 mg tablet 0.5 mg PO TID PRN anxiety 14 days 10/26/22 10/26/22 Unk nown Rx #42 tabs famotidine 20 mg tablet 20 mg PO BID #60 tabs 10/26/22 10/26/22 Unknown Rx Allergies Allergy/AdvReac Type Severity Reaction Status Date / Time No Known Allergies Allergy Verified 10/26/22 11:47 PFSH Acute PFSH: Medical History No significant past medical history Psychiatric care Social anxiety disorder Surgical History No significant past surgical history Vitals/I&O/Wt Last Vital Signs Resp 15 12/03/22 19:25 FiO2 90 12/03/22 19:25 12/03/22 12/03/22 12/04/22 14:59 22:59 06:59 Intake Total 2266.668 / 2266.668 Balance 2266.668 / 2266.668 Weight last 48 hrs Weight 58.513 kg Physical Exam Narrative: General: Patient is lethargic. Head: Normocephalic. Atraumatic. Dry mucous membranes. Neck: No JVD. Cardiovascular: Tachycardic. No gallops. No murmurs. No peripheral edema. Lungs: Poor air movement, no use of accessory muscles, no crackles or wheezes. Rhonchi in right upper lung field. Skin: No jaundice. No rashes. Abdomen: Hypoactive bowel sounds, abdomen soft and nontender. Genito Urinary: Bartlett catheter. Rectal: Rectal exam not performed since no symptoms indicated blood loss. Extremities: No cyanosis or clubbing. Musculoskeletal: No swollen or erythematous joints. Neurological: Lethargic. No myoclonus. Urinary Catheter Management: Bartlett: Cath Placed During This Visit: yes Urinary Catheter Date of Insertion: 12/03/22 Urinary Catheter Time of Insertion: 20:46 Data 12/03/22 19:21 12/03/22 19:21 Micro: Microbiology 12/03/22 19:53 Blood Culture - Preliminary Blood SPECIMEN COLLECTED 12/03/22 19:48 Blood Culture - Preliminary Blood SPECIMEN COLLECTED A&P Assessment and plan (1) Acute respiratory failure with hypoxia: Secondary to methadone overdose and aspiration pneumonia Continue supplemental oxygen support Treat underlying overdose Antibiotics as below (2) Opiate or related narcotic overdose: Continue Narcan drip (3) Hyperglycemia: No known history of diabetes Suspect secondary to stress response A1c ordered Low-dose sliding scale insulin correction (4) Aspiration pneumonia: Status post vancomycin and cefepime in the emergency department Start Unasyn Procalcitonin ordered (5) Acute encephalopathy: Acute toxic encephalopathy Treat underlying opiate overdose Monitor mentation closely Head CT reviewed, negative for acute findings Frequent reorientation (6) Seizure: Continue home Keppra (7) Social anxiety disorder: Hold home Xanax Consider maintenance medication prior to discharge (8) Lactic acid acidosis: Status post IV fluid resuscitation in the emergency department (9) Hyperphosphatemia: Repeat electrolytes in a.m. Plan DVT prophylaxis: Lovenox CODE STATUS: Full code Attestations Medical Necessity Statement*: Patient presents in respiratory failure secondary to opiate overdose complicated by aspiration pneumonia with expected hospitalization to cross 2 midnights. Critical Care Time: The high probability of a clinically significant, sudden or life threatening deterioration of the patient's respiratory system(s) required my full and direct attention, intervention and personal management. The critical care time is as shown. This time is in addition to time spent performing any reported procedures but includes the following: [x] Data and vital sign review and interpretation [x] Patient assessment, examination and intervention [x] Documentation [x] Medication orders and management Critical Care Time (min): 35 Coding Level of Care Code Acute Code for [facility] Fwd Diagnoses Acute respiratory failure with hypoxia J96.01 Opiate or related narcotic overdose T40.601A Hyperglycemia R73.9 Aspiration pneumonia J69.0 Acute encephalopathy G93.40 Seizure R56.9 Social anxiety disorder F40.10 Lactic acid acidosis E87.20 Hyperphosphatemia E83.39
--- NOTE | 2022-12-03 23:26 | PC.RESP ---
Patient was extubated at 2315 to room air. No respiratory distress noted at this time.
[2022-12-03] MEDS: ipratropium-albuterol 3 mL Neb INHALATION (23:50)
[2022-12-03] MEDS: naloxone 2 MG in sodium chloride 0.9% (100 ml) 100 ML 20.4 MG IV (23:51)
[2022-12-04] VITALS (75 sets, daily range): BP systolic 95–122; BP diastolic 57–86; PULSE 66–99; RESP 13–33; TEMP 37.1–37.5; O2SAT 84–100; BMI 17.4
[2022-12-04] MEDS: ampicillin-sulbactam 3 GM in sodium chloride 0.9% (plus) 50 ML IV ×4 (01:35→17:17)
[2022-12-04] MEDS: enoxaparin 40 mg/0.4 mL Syringe SUBCUT (01:40)
[2022-12-04 02:07] LABS: Basophils % 0.2 %; Eosinophils % 0.4 %; Hematocrit 36.2 % (42.0-52.0); Hemoglobin 11.3 g/dL (11.7-16.6); Lymphocytes # 2.1 10^3/uL (0.8-4.8); Lymphocytes % 21.4 %; Mean Corpuscular HGB Conc 31.2 g/dL (30.0-36.0); Mean Corpuscular Hemoglobin 25.5 pg (28.0-34.0); Mean Corpuscular Volume 81.7 fl (80-94); Mean Platelet Volume 12.7 fL (7.4-10.4); Monocytes # 0.5 10^3/uL (0.2-0.9); Monocytes % 4.7 %; Neutrophils % 72.9 %; Nucleated Red Blood Cells % 0 %; Platelet Count 205 10^3/cmm (130-400); Red Blood Count 4.43 10^6/uL (4.1-5.3); Red Cell Distribution Width 14.6 % (12.1-15.1); White Blood Count 9.6 10^3/uL (4.0-10.0)
[2022-12-04 02:35] LABS: Troponin 5 6HR 45.11 ng/L (0-15)
[2022-12-04 02:36] LABS: Alanine Aminotransferase 7 U/L (0-41); Albumin Level 3.7 g/dL (3.5-5.2); Alkaline Phosphatase 79 U/L (40-130); Anion Gap 10.7 (5-19); Aspartate Amino Transferase 12 U/L (0-40); Blood Urea Nitrogen 7 mg/dL (6-20); Calcium 7.7 mg/dL (8.5-10.5); Carbon Dioxide 23 mmol/L (22-29); Chloride 106 mmol/L (98-107); Glomerular Filtration Rate 168.5 mL/min (90-130); Glucose 56 mg/dL (65-115); Osmolality Calculated 280 mOsm/kg (285-295); Phosphorus 1.9 mg/dL (2.5-4.5); Sodium 137 mmol/L (136-145); Total Bilirubin 0.2 mg/dL (0.15-1.2); Total Protein 5.7 g/dL (6.6-8.7)
[2022-12-04 02:42] LABS: Procalcitonin 1.97 ng/mL (0-0.5)
[2022-12-04 02:45] LABS: Troponin 5 6HR Delta -2.89 ng/L (0-12)
[2022-12-04 02:49] LABS: Potassium 2.7 mmol/L (3.5-5.1)
[2022-12-04 03:20] LABS: Estmated Average Glucose 91; Hemoglobin A1C 4.8 % (4.0-6.0)
[2022-12-04] MEDS: potassium chloride ER 20 mEq Tablet 40 MEQ PO (03:20)
[2022-12-04] MEDS: naloxone 2 MG in sodium chloride 0.9% (100 ml) 100 ML 20.4 MG IV ×3 (04:48→15:11)
[2022-12-04 06:19] LABS: Glucose Point of Care 80 mg/dL (70-110)
[2022-12-04 07:10] LABS: Glucose Point of Care 93 mg/dL (70-110)
[2022-12-04] MEDS: famotidine 20 mg Tablet PO ×2 (08:41→17:14)
[2022-12-04] MEDS: levETIRAcetam 500 mg Tablet 1000 MG PO (08:41)
--- NOTE | 2022-12-04 08:51 | USCV_ITS ---
Orlin Aguirre Age: 22 Gender: M : 2000 Exam Date: 12/04/2022 09:40 Ordering Phys: Raul Alfaro MD Technologist: Baudilio Leach [place] [facility] [place]: BP: 120 / 74 HR: 64 Rhythm: Sinus Technical Quality: Adequate MEASUREMENTS (Male / Female) Normal Values 2D ECHO LV Diastolic Diameter PLAX 5.0 cm 4.2 - 5.9 / 3.9 - 5.3 cm LV Systolic Diameter PLAX 3.3 cm IVS Diastolic Thickness 1.0 cm 0.6 - 1.0 / 0.6 - 0.9 cm IVS Systolic Thickness 1.8 cm LVPW Diastolic Thickness 1.0 cm 0.6 - 1.0 / 0.6 - 0.9 cm LVPW Systolic Thickness 1.6 cm LVOT Diameter 2.1 cm LV Ejection Fraction 2D Teich 64.1 % LA Diameter 3.0 cm IVC Diameter 1.4 cm M-MODE Aortic Annulus Diameter 3.2 cm LA Ao Ratio MM 1.1 MV E Point Septal Separation 1.0 cm DOPPLER AV Peak Velocity 125.0 cm/s LVOT Peak Velocity 105.0 cm/s AV Area Cont Eq vti 3.0 cm squared AV Area Cont Eq pk 2.9 cm squared MV Area PHT 4.4 cm squared Mitral E to A Ratio 1.8 MV E' Velocity 58.0 cm/s Mitral E to MV E' Ratio 5.3 Mitral E to LV E' Lateral Ratio 4.9 Mitral E to LV E' Septal Ratio 5.7 TR Peak Velocity 233.0 cm/s TR Peak Gradient 21.7 mmHg TV Peak E Velocity 87.0 cm/s Right Atrial Pressure 3.0 mmHg Pulmonary Artery Systolic Pressu 24.7 mmHg RV Acceleration Time 0.2 s FINDINGS Left Ventricle Left ventricle is normal in size. LV systolic function is normal with EF of 55-60%. No regional wall motion abnormalities are seen. Right Ventricle Normal in size and function Right Atrium Normal in size Left Atrium Normal in size Mitral Valve Structurally normal mitral valve. Trace mitral regurgitation. Aortic Valve Structurally normal aortic valve. No significant stenosis or regurgitation is seen. Tricuspid Valve Mild tricuspid regurgitation. Pulmonary artery systolic pressure is normal Pulmonic Valve Not well visualized Pericardium Normal Aorta Normal size IVC Appears to normal. CONCLUSIONS LV systolic function is normal with EF of 55 to 60%. Trace mitral regurgitation Mild tricuspid regurgitation No comparison studies are available Reza Clement MD (Electronically Signed) Final Date: 04 December 2022 18:59 S
[2022-12-04 10:16] LABS: Alanine Aminotransferase 9 U/L (0-41); Albumin Level 3.6 g/dL (3.5-5.2); Alkaline Phosphatase 82 U/L (40-130); Anion Gap 13.3 (5-19); Aspartate Amino Transferase 13 U/L (0-40); Blood Urea Nitrogen 5 mg/dL (6-20); Carbon Dioxide 22 mmol/L (22-29); Chloride 100 mmol/L (98-107); Globulin 2.1 g/dL (1.3-4.6); Glomerular Filtration Rate 168.5 mL/min (90-130); Glucose 83 mg/dL (65-115); Osmolality Calculated 270 mOsm/kg (285-295); Potassium 3.3 mmol/L (3.5-5.1); Sodium 132 mmol/L (136-145); Total Bilirubin 0.6 mg/dL (0.15-1.2); Total Protein 5.7 g/dL (6.6-8.7)
[2022-12-04 11:28] LABS: Glucose Point of Care 78 mg/dL (70-110)
--- NOTE | 2022-12-04 13:17 | P.PN_ITS ---
Subjective Subjective: Goes by Hunter. He is somnolent, wakes up, states that she is having a headache, has also been very bothered by her urinary catheter. Otherwise some pain in the left forearm where he had IVs and blood draws. Discussed with him and his family regarding aspiration pneumonia, hypoxia, continued recovery from overdose. Discussion with him on 1 he states he took methadone with concern of having withdrawal from Xanax. States he has had withdrawal before. He is trying to wean off Xanax. He absolutely denies that he has had any thoughts of self-harm or suicidal ideation. Discussed with his family he has been dealing with anxiety, he reports he has attempted to seek care at [facility] but was reportedly unable to do so due to marijuana use. Vitals/I&O/Wt Last Vital Signs Temp 98.7 F 12/04/22 08:00 Pulse 72 12/04/22 12:30 Resp 19 H 12/04/22 12:30 BP 110/57 12/04/22 12:30 Pulse Ox 100 12/04/22 12:30 O2 Del Method 12/04/22 08:00 O2 Flow Rate 5 12/04/22 08:00 FiO2 90 12/04/22 12:00 12/03/22 12/04/22 12/04/22 22:59 06:59 14:59 Intake Total 2266.668 / 2266.668 708.704 / 2975.372 152 / 152 Output Total 975 / 975 Balance 2266.668 / 2266.668 -266.296 / 2000.372 152 / 152 Weight last 48 hrs Weight 58.513 kg Weight 58.513 kg Physical Exam Const: COMMON NORMALS: patient oriented x3 and alert GENERAL APPEARANCE: cooperative and lethargic ORIENTATION/CONSCIOUSNESS: Yes awake and Yes lethargic OTHER: Wakes up to voice. HENMT: COMMON NORMALS: oropharynx normal Neck/C-Spine: COMMON NORMALS: no JVD Resp: COMMON NORMALS: normal respiratory effort and clear to auscultation bilaterally AUSCULTATION: clear to auscultation bilaterally Cardio: COMMON NORMALS: no JVD, regular rhythm, S1 normal heart sound present, S2 normal heart sound present and No murmurs present (Cardio) RHYTHM: regular rhythm HEART SOUNDS: S1 normal heart sound present and S2 normal heart sound present GI: COMMON NORMALS: Normal to inspection, nondistended, normoactive bowel sounds present, Soft to palpation and non-tender PALPATION: Yes Soft to palpation Extremity: COMMON NORMALS: no joint enlargement and no pedal edema Neuro: COMMON NORMALS: patient oriented x3 and moves all extremities SENSORIUM/ORIENTATION: Yes alert and Yes lethargic Skin: COMMON NORMALS: no rashes or lesions noted GENERAL SKIN EXAM: no rashes or lesions noted Urinary Catheter Management: Bartlett: Cath Placed During This Visit: yes Urinary Catheter Date of Insertion: 12/03/22 Urinary Catheter Time of Insertion: 20:46 Data 12/04/22 01:23 12/04/22 09:01 Micro: Microbiology 12/03/22 19:25 Gram Stain - Final Sputum - Endotracheal Tube Aspirate 12/03/22 19:53 Blood Culture - Preliminary Blood SPECIMEN COLLECTED 12/03/22 19:48 Blood Culture - Preliminary Blood SPECIMEN COLLECTED A&P Assessment and plan (1) Acute respiratory failure with hypoxia: Resolving methadone overdose. Aspiration pneumonia. Continue oxygen support, wean down as tolerated. Pulmonary toilet. Unasyn. Currently on 5 L of oxygen. Secondary to methadone overdose and aspiration pneumonia. As he is not hypoventilating we will cut down Narcan drip rate. He wants Bartlett catheter removed it is bothering him quite a bit. WILBERTO Bartlett. (2) Opiate or related narcotic overdose: Cut down Narcan drip. Continue to monitor mental status due to potentially long methadone half-life. Monitor for signs of worsening respiratory depression. Trial of clear liquids consisting carb diet. (3) Hyperglycemia: No known history of diabetes A1c reviewed, 4.8, no diabetes. Discussed with his family, no history of diabetes, no indication of prior diabetes, will need to monitor glucose. May be stress response secondary to pneumonia. Otherwise possibility of newly developed diabetes. Low-dose sliding scale insulin correction (4) Aspiration pneumonia: Status post vancomycin and cefepime in the emergency department Continue Unasyn He is waking up more. Trial of clear liquids. (5) Acute encephalopathy: Improving. Cut down naloxone drip. Continue to monitor mental status, respiratory function. Monitor for withdrawal from Xanax. Acute toxic encephalopathy Treat underlying opiate overdose Monitor mentation closely Frequent reorientation (6) Seizure: Continue home Keppra (7) Social anxiety disorder: Hold home Xanax As per history obtained from his mother and sister, reportedly was unable to establish care at [facility] due to marijuana use. Would benefit from follow-up with regards to his anxiety further assessment and management including therapy, medication for chronic anxiety other than benzodiazepines. (8) Lactic acid acidosis: Status post IV fluid resuscitation in the emergency department (9) Hyperphosphatemia: Currently mildly low 1.9. Unclear if father is also spurious. We will follow- up additional phosphorus level. Plan Headache: Moderate headache, added Tylenol, ibuprofen as needed. DVT prophylaxis: Lovenox CODE STATUS: Full code Attestations Medical Necessity Statement*: Continue admission for assessment management of acute encephalopathy following methadone overdose, respiratory failure, not drip, aspiration pneumonia. Coding Level of Care Code Critical Care >/= 30 minutes Critical care time (in minutes): 45 The high probability of a clinically significant, sudden or life threatening deterioration, as referenced in this documentation, required my full and direct attention, intervention and personal management. The critical care time shown is in addition to time spent performing any reported separately billable procedures and includes the following: [x] Data and vital sign review and interpretation [x ] Patient assessment, examination and intervention [x] Medication orders and management [x] Patient/Family updates as able [x] Care Coordination and Documentation. Diagnoses Acute respiratory failure with hypoxia J96.01 Opiate or related narcotic overdose T40.601A Hyperglycemia R73.9 Aspiration pneumonia J69.0 Acute encephalopathy G93.40 Seizure R56.9 Social anxiety disorder F40.10 Lactic acid acidosis E87.20 Hyperphosphatemia E83.39
[2022-12-04] MEDS: acetaminophen 325 mg Tablet 650 MG PO (15:11)
[2022-12-04 20:42] LABS: Glucose Point of Care 68 mg/dL (70-110)
[2022-12-04] MEDS: nicotine 21 mg Patch 1 PATCH TRANSDERMA (21:12)
[2022-12-05] VITALS (16 sets, daily range): BP systolic 86–122; BP diastolic 51–79; PULSE 67–100; RESP 14–21; TEMP 36.5–37.1; O2SAT 97–100
[2022-12-05] MEDS: ampicillin-sulbactam 3 GM in sodium chloride 0.9% (plus) 50 ML IV ×4 (00:13→19:38)
[2022-12-05] MEDS: enoxaparin 40 mg/0.4 mL Syringe SUBCUT (01:05)
[2022-12-05] MEDS: LORazepam 2 mg/mL INJ 1 mL IVP (04:48)
[2022-12-05 05:50] LABS: Basophils # 0.1 10^3/uL (0.0-0.1); Basophils % 0.4 %; Eosinophils # 0.2 10^3/uL (0.0-0.8); Eosinophils % 1.2 %; Hematocrit 38.5 % (42.0-52.0); Lymphocytes % 14.9 %; Mean Corpuscular HGB Conc 31.2 g/dL (30.0-36.0); Mean Corpuscular Hemoglobin 25.5 pg (28.0-34.0); Mean Corpuscular Volume 81.9 fl (80-94); Mean Platelet Volume 13.4 fL (7.4-10.4); Monocytes % 7.2 %; Neutrophils # 10.33 10^3/uL (1.8-7.7); Neutrophils % 75.9 %; Nucleated Red Blood Cells % 0 %; Platelet Count 191 10^3/cmm (130-400); Red Cell Distribution Width 14.6 % (12.1-15.1); White Blood Count 13.6 10^3/uL (4.0-10.0)
[2022-12-05 06:07] LABS: Alanine Aminotransferase 7 U/L (0-41); Albumin Level 3.7 g/dL (3.5-5.2); Alkaline Phosphatase 91 U/L (40-130); Anion Gap 13.6 (5-19); Aspartate Amino Transferase 13 U/L (0-40); Blood Urea Nitrogen 6 mg/dL (6-20); Calcium 8.4 mg/dL (8.5-10.5); Carbon Dioxide 25 mmol/L (22-29); Chloride 100 mmol/L (98-107); Globulin 2.6 g/dL (1.3-4.6); Glomerular Filtration Rate 207.9 mL/min (90-130); Glucose 75 mg/dL (65-115); Osmolality Calculated 276 mOsm/kg (285-295); Phosphorus 2.3 mg/dL (2.5-4.5); Potassium 3.6 mmol/L (3.5-5.1); Sodium 135 mmol/L (136-145); Total Bilirubin 0.7 mg/dL (0.15-1.2); Total Protein 6.3 g/dL (6.6-8.7)
[2022-12-05] MEDS: thiamine 100 mg Tablet PO (07:56)
[2022-12-05] MEDS: folic acid 1 mg Tablet PO (07:56)
[2022-12-05] MEDS: famotidine 20 mg Tablet PO ×2 (07:57→19:39)
[2022-12-05] MEDS: levETIRAcetam 500 mg Tablet 1000 MG PO (07:57)
[2022-12-05] MEDS: multivitamin therapeutic Tablet 1 TAB PO (07:58)
--- NOTE | 2022-12-05 10:25 | PC.CHAP ---
Pastoral Care Encounter/Spiritual Assessment Type of Contact [] Declined neurophysiologist visit [] Patient/Family/Request visit [] Outpatient visit [] Follow-up visit [] Physician referral [] Code/Alert [x] Routine visit [] Staff referral [] Actively dying [] Patient sleeping [x] Family support [] [] Out of room [] Palliative care [] [] Receiving care in room [] Pre-surgical visit [] Trauma [] Long length of stay [x] ICU visit [] Other: Relational/Emotional Strength [] Patient feels connected with others/family/visitors/staff [] Distress [] Loneliness/isolation [] Abandonment Spirituality of Patient [] Person of Tila [] Attends Quaker of their Tila [] Believes in Prayer [] Reads Bible or Mosque materials [] There are Spiritual issues to be addressed Procurement Professional Interventions [x] Prayer [] Active listening [] Non-anxious presence [] Spiritual/emotional support [] Crisis/trauma care [] Spiritual counseling [] Bereavement support [] Provided bereavement packet [] Provided Bible/devotional materials [] Provided toy/stuffed animal, coloring book to patient or family member [] Provided Communion [] Anointing/[place] [] Salvation [x] Completed spiritual assessment [] Other: Impact on Illness or Injury [] Angry [] Fearful [] Anxious [] Often cries [] Exhaustion [] Unable to work [] Unable to attend anabaptism [] Unable to walk/stand [] Unable to read [] Unable to drive [] Unable to eat/drink [] Unable to sleep [] Unable to be with family [] Patient intubated [] Other: Summary Time spent with patient
[2022-12-05] MEDS: nicotine 14 mg Patch 1 PATCH TRANSDERMA (11:26)
--- NOTE | 2022-12-05 13:26 | PC.NURSE ---
Report Report called to [facility] on second floor. Pt was notified of new room number and his mother was called to let her know also. Pt was taken via wheelchair by Tania GREENWOOD and Jelena GREENWOOD to [id number].
[2022-12-05] MEDS: acetaminophen 325 mg Tablet 650 MG PO (15:28)
--- NOTE | 2022-12-05 16:11 | P.PN_ITS ---
Subjective Subjective: Today he is doing better. He is gradually recovering. Continues to require oxygen supplementation. Confirms again that he did not have any thoughts of self-harm or suicidal ideation and that taking methadone was to avert him going into withdrawal from Xanax. Vitals/I&O/Wt Last Vital Signs Temp 98.8 F 12/05/22 07:38 Pulse 74 12/05/22 12:00 Resp 19 H 12/05/22 12:00 BP 121/72 12/05/22 12:00 Pulse Ox 98 12/05/22 12:00 O2 Del Method 12/04/22 08:00 O2 Flow Rate 5 12/05/22 07:38 FiO2 90 12/05/22 12:00 12/05/22 12/05/22 12/05/22 06:59 14:59 22:59 Intake Total 350 / 1559.92 Output Total 0 / 3475 0 / 0 Balance 350 / -1915.08 0 / 0 Weight last 48 hrs Weight 58.513 kg Weight 58.513 kg Physical Exam Narrative: Oxy mask on. Const: COMMON NORMALS: patient oriented x3 and alert GENERAL APPEARANCE: cooperative ORIENTATION/CONSCIOUSNESS: Yes awake OTHER: Wakes up easily. HENMT: COMMON NORMALS: oropharynx normal Neck/C-Spine: COMMON NORMALS: no JVD Resp: COMMON NORMALS: normal respiratory effort AUSCULTATION: no wheezes and diminished lung sounds Cardio: COMMON NORMALS: no JVD, regular rhythm, S1 normal heart sound present, S2 normal heart sound present and No murmurs present (Cardio) RHYTHM: regular rhythm HEART SOUNDS: S1 normal heart sound present and S2 normal heart sound present GI: COMMON NORMALS: Normal to inspection, nondistended, normoactive bowel sounds present, Soft to palpation and non-tender PALPATION: Yes Soft to palpation Extremity: COMMON NORMALS: no joint enlargement and no pedal edema Neuro: COMMON NORMALS: patient oriented x3 and moves all extremities SENSORIUM/ORIENTATION: Yes alert Skin: COMMON NORMALS: no rashes or lesions noted GENERAL SKIN EXAM: no rashes or lesions noted Urinary Catheter Management: Bartlett: Cath Placed During This Visit: yes Urinary Catheter Date of Insertion: 12/03/22 Urinary Catheter Time of Insertion: 20:46 Data 12/05/22 04:16 12/05/22 04:16 Micro: Microbiology 12/03/22 19:25 Gram Stain - Final Sputum - Endotracheal Tube Aspirate Sputum Culture - Preliminary 12/03/22 19:53 Blood Culture - Preliminary Blood NEGATIVE TO DATE 12/03/22 19:48 Blood Culture - Preliminary Blood NEGATIVE TO DATE A&P Assessment and plan (1) Acute respiratory failure with hypoxia: Stopped naloxone drip, and he has done well subsequently monitoring without further respiratory depression. Continues recovery from aspiration pneumonia. Continue Unasyn. Reviewed vital signs, still requiring 5 L by oxy mask. Continue oxygen support with RT follow- up, wean down as tolerated. Pulmonary toilet. Bartlett catheter discontinued. (2) Opiate or related narcotic overdose: Stopped Narcan drip. Monitor for signs of withdrawal from Xanax. Advance diet. (3) Hyperglycemia: Hyperglycemia resolved. No known history of diabetes. A1c 4.8, no diabetes. Discussed with his family, no history of diabetes, no indication of prior diabetes, will need to monitor glucose. May be stress response secondary to pneumonia. Otherwise possibility of newly developed diabetes. Low-dose sliding scale insulin correction (4) Aspiration pneumonia: Status post vancomycin and cefepime in the emergency department Continue Unasyn He is waking up more. Trial of clear liquids. (5) Acute encephalopathy: Improving. Cut down naloxone drip. Continue to monitor mental status, respiratory function. Monitor for withdrawal from Xanax. Acute toxic encephalopathy Treat underlying opiate overdose Monitor mentation closely Frequent reorientation (6) Seizure: Continue home Keppra (7) Social anxiety disorder: Hold home Xanax As per history obtained from his mother and sister, reportedly was unable to establish care at [facility] due to marijuana use. Would benefit from follow-up with regards to his anxiety further assessment and management including therapy, medication for chronic anxiety other than benzodiazepines. (8) Lactic acid acidosis: Status post IV fluid resuscitation in the emergency department (9) Hyperphosphatemia: Resolved. Plan Headache: Moderate headache, added Tylenol, ibuprofen as needed. DVT prophylaxis: Lovenox CODE STATUS: Full code Attestations Medical Necessity Statement*: Continued mission for assessment management of respiratory failure, aspiration pneumonia. Coding Level of Care Code 34134 Other Coding Information Focused coding review requested Diagnoses Acute respiratory failure with hypoxia J96.01 Opiate or related narcotic overdose T40.601A Hyperglycemia R73.9 Aspiration pneumonia J69.0 Acute encephalopathy G93.40 Seizure R56.9 Social anxiety disorder F40.10 Lactic acid acidosis E87.20 Hyperphosphatemia E83.39
[2022-12-05 16:43] LABS: Glucose Point of Care 118 mg/dL (70-110)
[2022-12-05 21:49] LABS: Glucose Point of Care 148 mg/dL (70-110)
[2022-12-06] VITALS: BP 124/82; PULSE 80; RESP 15; TEMP 36.6; O2SAT 99
--- NOTE | 2022-12-06 01:23 | PC.NURSE ---
Upon shift start pt wanted Ativan to sleep and pain but did not meet CIWA protocol to be administered Ativan. This nurse offered the pt ibuprofen and Tylenol that was ordered for pain but pt refused pain medication stating Fuck that shit it won't do anything for me. Upon entering the pt room to inform him that he does not qualify for Ativan pt was resting in bed with eyes closed with even chest rise. Pt refused 00:45 medications, this nurse provided the pt education about the risk of not taking the medications and Pt stated Get the fuck out of here with that shit. This nurse left the pt room. Pt A&O x4.
[2022-12-06 04:00] VITALS: BP 130/64; PULSE 73; RESP 17; TEMP 36.6; O2SAT 100
[2022-12-06 05:49] LABS: Basophils % 0.3 %; Eosinophils # 0.2 10^3/uL (0.0-0.8); Eosinophils % 2.4 %; Hematocrit 39.6 % (42.0-52.0); Hemoglobin 12.4 g/dL (11.7-16.6); Lymphocytes # 1.9 10^3/uL (0.8-4.8); Mean Corpuscular HGB Conc 31.3 g/dL (30.0-36.0); Mean Corpuscular Hemoglobin 25.5 pg (28.0-34.0); Mean Corpuscular Volume 81.5 fl (80-94); Mean Platelet Volume 12.8 fL (7.4-10.4); Monocytes # 0.7 10^3/uL (0.2-0.9); Monocytes % 7.1 %; Neutrophils # 7.06 10^3/uL (1.8-7.7); Neutrophils % 70.9 %; Nucleated Red Blood Cells % 0 %; Platelet Count 206 10^3/cmm (130-400); Red Blood Count 4.86 10^6/uL (4.1-5.3); Red Cell Distribution Width 14.5 % (12.1-15.1)
[2022-12-06 06:03] LABS: Alanine Aminotransferase < 5 U/L (0-41); Albumin Level 3.9 g/dL (3.5-5.2); Alkaline Phosphatase 78 U/L (40-130); Blood Urea Nitrogen 6 mg/dL (6-20); Calcium 8.9 mg/dL (8.5-10.5); Carbon Dioxide 26 mmol/L (22-29); Chloride 102 mmol/L (98-107); Glomerular Filtration Rate 168.5 mL/min (90-130); Glucose 141 mg/dL (65-115); Osmolality Calculated 286 mOsm/kg (285-295); Sodium 138 mmol/L (136-145); Total Bilirubin 0.5 mg/dL (0.15-1.2); Total Protein 6.9 g/dL (6.6-8.7)
[2022-12-06 06:11] LABS: Anion Gap 13.5 (5-19); Potassium 3.5 mmol/L (3.5-5.1)
[2022-12-06] MEDS: ampicillin-sulbactam 3 GM in sodium chloride 0.9% (plus) 50 ML IV (06:35)
[2022-12-06 06:52] LABS: Glucose Point of Care 89 mg/dL (70-110)
[2022-12-06 07:08] LABS: Aspartate Amino Transferase 17 U/L (0-40)
[2022-12-06 08:00] VITALS: BP 125/75; PULSE 70; RESP 18; TEMP 36.8; O2SAT 99
--- NOTE | 2022-12-06 09:38 | PC.CHAP ---
Pastoral Care Encounter/Spiritual Assessment Type of Contact [] Declined beam builder helper visit [] Patient/Family/Request visit [] Outpatient visit [] Follow-up visit [] Physician referral [] Code/Alert [x] Routine visit [] Staff referral [] Actively dying [] Patient sleeping [] Family support [] [] Out of room [] Palliative care [] [] Receiving care in room [] Pre-surgical visit [] Trauma [] Long length of stay [] ICU visit [] Other: Relational/Emotional Strength [x] Patient feels connected with others/family/visitors/staff [] Distress [] Loneliness/isolation [] Abandonment Spirituality of Patient [] Person of Tila [] Attends Rastafarian of their Tila [] Believes in Prayer [] Reads Bible or Baptist materials [x] There are Spiritual issues to be addressed Pharmacy Technology Instructor Interventions [] Prayer [x] Active listening [x] Non-anxious presence [x] Spiritual/emotional support [] Crisis/trauma care [] Spiritual counseling [] Bereavement support [] Provided bereavement packet [] Provided Bible/devotional materials [] Provided toy/stuffed animal, coloring book to patient or family member [] Provided Communion [] Anointing/[place] [] Salvation [x] Completed spiritual assessment [] Other: Impact on Illness or Injury [] Angry [] Fearful [] Anxious [] Often cries [] Exhaustion [] Unable to work [] Unable to attend yazidism [] Unable to walk/stand [] Unable to read [] Unable to drive [] Unable to eat/drink [] Unable to sleep [] Unable to be with family [] Patient intubated [] Other: Summary 5m Time spent with patient
[2022-12-06] MEDS: thiamine 100 mg Tablet PO (09:57)
[2022-12-06] MEDS: multivitamin therapeutic Tablet 1 TAB PO (09:57)
[2022-12-06] MEDS: folic acid 1 mg Tablet PO (09:57)
[2022-12-06] MEDS: famotidine 20 mg Tablet PO (09:57)
[2022-12-06] MEDS: levETIRAcetam 500 mg Tablet 1000 MG PO (09:57)
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
[2022-12-06 10:56] VITALS: O2SAT 100; O2SAT 97
[2022-12-06 11:58] VITALS: BP 125/75; PULSE 70; RESP 18; TEMP 36.8; O2SAT 99
== END 2022-12-06 11:59 | disposition home or self-care (01) | DRG 917 ==
LOC: ER 21:36 → ICU 12-04 00:35 → MEDSURG 12-05 13:50
PROVIDERS: Admitting Provider Internal Medicine; Emergency Provider Emergency Medicine; PCP Family Medicine; Visit Provider Internal Medicine
DX: T40.3X1A Poisoning by methadone, accidental (unintentional), initial encounter (principal); G92.8 Other toxic encephalopathy; J69.0 Pneumonitis due to inhalation of food and vomit; J96.01 Acute respiratory failure with hypoxia; R73.9 Hyperglycemia, unspecified; F40.10 Social phobia, unspecified; F12.90 Cannabis use, unspecified, uncomplicated; F41.8 Other specified anxiety disorders; G40.909 Epilepsy, unspecified, not intractable, without status epilepticus
CPT/HCPCS: 36415; 36416; 36600; 51702; 70450; 71045; 80053; 80306; 80307; 81003; 82009; 82550; 82803; 82962; 83036; 83605; 83735; 84100; 84145; 84484; 85025; 85378; 86140; 87040; 87070; 87205; 87426; 87804; 93005; 93306; 94002; 94760; 94799; 96365; 96366; 96367; 96372; 96374; 96375; 99291; 99292; J0295; J0692; J1650; J2060; J2250; J2310; J2370; J2704; J3010; J3370; J3411; J7030; J7050

== ENCOUNTER 2024-01-31 09:51 | Emergency (ER) | payer BC, MEDICAID, SELFPAY ==
[2024-01-31] VITALS (7 sets, daily range): BP systolic 141; BP diastolic 98; PULSE 91–100; RESP 9–17; TEMP 36.7; O2SAT 99–100; BMI 17.1
--- NOTE | 2024-01-31 10:07 | XR_ITS ---
WS: [id number] Examination: XR chest 1V portable [id number] Reason for Exam: syncope Date: January 31, 2024 Comparison: December 03, 2022 Findings: No ET tube is identified on today's study The heart is not enlarged. The mediastinum is not widened. There is no congestion. There is no pleural effusion or dense validation Impression: No dense consolidation is identified.
--- NOTE | 2024-01-31 10:07 | ECG_ITS ---
[facility] Test Date: 2024-01-31 Pat Name: Orlin Aguirre Department: Room: Gender: Male Lab Analyst: : [id number] Requested By: Ike Hughes Order Number: [id number] Reading MD: Anupam Mon M.D. Measurements Intervals [place] Rate: 97 P: 138 MN: 101 QRS: 99 QRSD: 90 T: -6 QT: 354 QTc: 452 Interpretive Statements SINUS RHYTHM WITH SHORT MN INTERVAL POSSIBLE LEFT ATRIAL ENLARGEMENT [-0.1mV P-WAVE IN V1/V2] BORDERLINE RIGHT AXIS DEVIATION [QRS AXIS > 90] NONSPECIFIC T-WAVE ABNORMALITY Compared to ECG 12/03/2022 21:17:26 Short MN interval now present T-wave abnormality now present Sinus bradycardia no longer present Prolonged QT interval no longer present Electronically Signed On 01-31-2024 14:03:12 CDT by Anupam Mon M.D. [id number]
--- NOTE | 2024-01-31 10:07 | CT_ITS ---
WS: [id number] CT HEAD TECHNIQUE: Noncontrast CT of the head obtained from the skullbase to the vertex. CLINICAL INFORMATION: syncope COMPARISON: CT 12/03/2022 DLP: 2059.[address] scans at [facility] use at least one of these dose optimization techniques: automated e xposure control; mA and/or kV adjustment per patient size (includes targeted exams where dose is matc hed to clinical indication); or iterative reconstruction. FINDINGS: No evidence of intracranial hemorrhage or mass effect. Ventricular system and basal cisterns are em nt. Tiny incidental arachnoid cyst LEFT middle cranial fossa measuring 1.1 x 1.9 cm. This is unchang ed. Trace fluid in the RIGHT maxillary sinus. Paranasal sinuses are otherwise well aerated. Mastoid air c ells are well aerated. IMPRESSION: 1. No evidence of intracranial hemorrhage or mass effect. 2. Tiny benign incidental arachnoid cyst LEFT middle cranial fossa measuring 1.1 x 1.9 cm 3. No acute intracranial findings.
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
[2024-01-31] MEDS: sodium chloride 0.9% 1,000 ML 999 ML IV (10:11)
[2024-01-31] MEDS: ondansetron 2 mg/ML SDV 2 mL 4 MG IVP (10:15)
[2024-01-31] MEDS: morphine 4 mg/mL SDV 1 mL IVP (10:15)
[2024-01-31 10:16] LABS: Basophils # 0.1 10^3/uL (0.0-0.1); Basophils % 0.6 %; Eosinophils # 0.1 10^3/uL (0.0-0.8); Hematocrit 43.8 % (37-53); Lymphocytes # 3.1 10^3/uL (0.8-4.8); Lymphocytes % 22.9 %; Mean Corpuscular HGB Conc 31.1 g/dL (30-55); Mean Corpuscular Hemoglobin 25.6 pg (27-33); Mean Corpuscular Volume 82.3 fl (82-101); Mean Platelet Volume 11.7 fL (7.4-10.4); Monocytes # 0.8 10^3/uL (0.2-0.9); Monocytes % 5.6 %; Neutrophils # 9.37 10^3/uL (1.8-7.7); Neutrophils % 69.6 %; Nucleated Red Blood Cells % 0 %; Platelet Count 250 10^3/cmm (157-399); Red Blood Count 5.32 10^6/uL (3.85-5.65); Red Cell Distribution Width 14.3 % (12.1-15.1); White Blood Count 13.47 10^3/uL (3.29-11.43)
[2024-01-31] MEDS: tetanus-dipt-pertussis 0.5 mL SDV IM (10:17)
--- NOTE | 2024-01-31 10:20 | PC.PHAR ---
pt and pts mother verified pts medications-pts mother and pt states he takes his levetiracetam 500mg po daily prn written 500mg daily ext doesnt show when last filled-pt states he doesnt take any otc medications-
[2024-01-31 10:35] LABS: Alanine Aminotransferase 14 U/L (0-41); Albumin Level 4.9 g/dL (3.5-5.2); Alkaline Phosphatase 93 U/L (40-130); Aspartate Amino Transferase 20 U/L (0-40); Blood Urea Nitrogen 12 mg/dL (6-20); Calcium 9.4 mg/dL (8.5-10.5); Carbon Dioxide 28 mmol/L (22-29); Chloride 99 mmol/L (98-107); Creatinine Clr Calc Pharmacy 119.7767; Globulin 3.5 g/dL (1.3-4.6); Glomerular Filtration Rate 119.8 mL/min (90-130); Glucose 140 mg/dL (65-115); Osmolality Calculated 292 mOsm/kg (285-295); Sodium 140 mmol/L (136-145); Total Bilirubin 0.7 mg/dL (0.15-1.2); Total Protein 8.4 g/dL (6.6-8.7)
[2024-01-31] MEDS: HYDROmorphone 1 mg/mL INJ 1 mL IVP (11:41)
== END 2024-01-31 12:05 | disposition home or self-care (01) ==
PROVIDERS: Emergency Provider Emergency Medicine; PCP Family Medicine
DX: T23.002A Burn of unspecified degree of left hand, unspecified site, initial encounter (principal); T25.022A Burn of unspecified degree of left foot, initial encounter; T24.002A Burn of unspecified degree of unspecified site of left lower limb, except ankle and foot, initial encounter; T31.0 Burns involving less than 10% of body surface; X08.8XXA Exposure to other specified smoke, fire and flames, initial encounter; Z23 Encounter for immunization
CPT/HCPCS: 70450; 71045; 80053; 85025; 90715; 93005; 96374; 96375; 99285; J1170; J2270; J2405; J7030

== ENCOUNTER 2024-06-25 19:50 | Emergency (ER) | payer BC, MEDICAID, SELFPAY ==
[2024-06-25 19:51] VITALS: BP 124/71; PULSE 108; RESP 18; TEMP 36.9; O2SAT 95; BMI 17.2
--- NOTE | 2024-06-25 19:56 | CTR_ITS ---
PROCEDURE INFORMATION: Exam: CT Head Without Contrast Exam date and time: 06/25/2024 8:04 PM Age: 23 years old Clinical indication: Other: Seizure TECHNIQUE: Imaging protocol: Computed tomography of the head without contrast. Radiation optimization: All CT scans at this facility use at least one of these dose optimization techniques: automated exposure control; mA and/or kV adjustment per patient size (includes targeted exams where dose is matched to clinical indication); or iterative reconstruction. COMPARISON: CT head wo con* [id number] 01/31/2024 10:34 AM RADIATION DOSE METRICS: Total DLP (mGy-cm): 1230 FINDINGS: Brain: Left middle cranial fossa stable 19 mm arachnoid cyst again seen. Cerebral ventricles: No ventriculomegaly. Paranasal sinuses: Visualized sinuses are unremarkable. No fluid levels. Mastoid air cells: Visualized mastoid air cells are well aerated. Bones: Unremarkable. No acute fracture. Soft tissues: Unremarkable. CT/CT head wo con* [id number] IMPRESSION: 1. No acute intracranial abnormality. 2. Left middle cranial fossa stable 19 mm arachnoid cyst again seen.
--- NOTE | 2024-06-25 19:57 | ED_ITS ---
HPI - Seizure 2 General: Chief Complaint: Seizure Stated Complaint: seizure Time Seen by Provider: 06/25/24 19:53 Source: patient Mode of arrival: ambulatory Limitations: no limitations History of Present Illness: HPI Narrative: 23-year-old male is well-known to the ER as well as history of seizures states that he had a seizure tonight as witness had called EMS EMS states that he is postictal and provided him 2 mg Ativan patient is now awake and alert much more questions he did hit his head on the floor had a headache and vomited a hematoma to the left forehead. He denies any pain elsewhere at this time. Associated symptoms: Deny chest pain, chills or fever(s) Related Data Home Medications Medication Instructions Recorded Confirmed levetiracetam 500 mg tablet 500 mg PO DAILY PRN takes when he 01/31/24 06/25/24 thinks he needs it Previous Rx's Medication Instructions Recorded hydrocodone 5 mg-acetaminophen 325 1 tab PO Q6H PRN pain #14 tabs 01/31/24 mg tablet ondansetron 4 mg disintegrating 4 mg PO Q6H PRN nausea and 01/31/24 tablet vomiting #14 tabs alprazolam 0.5 mg tablet 0.5 mg PO TID PRN anxiety 30 days 06/18/24 #90 tabs Allergies Allergy/AdvReac Type Severity Reaction Status Date / Time No Known Allergies Allergy Verified 06/25/24 10:36 Review of Systems 2 Const: Denies: fever(s), chills, body aches or change in appetite ENMT: Denies: throat pain or dental pain Card: Denies: chest pain Resp: Denies: dyspnea GI: Denies: abdominal pain, nausea, vomiting or diarrhea Musc: Denies: neck pain or back pain Skin/Breast: Denies: rash Neuro: Reports: headache(s) and seizure-like activity Psych: Denies: depression PFSH ED 2 PFSH: Medical History Social anxiety disorder No significant past medical history Surgical History No significant past surgical history Social History Smoking and tobacco/nicotine status: current every day tobacco/nicotine user Substance/Drug Use: current Physical Exam 2 Const: COMMON NORMALS: no acute distress, patient oriented x3 and healthy appearing HENMT: COMMON NORMALS: normocephalic; head/scalp not atraumatic (hematoma to left forehead) HEAD & SCALP: n ormocephalic; not atraumatic (hematoma to left forehead) Eye: COMMON NORMALS: Equal, round and reactive pupils present and EOMs intact bilaterally PUPIL: Yes Equal, round and reactive pupils present Neck/C-Spine: COMMON NORMALS: full ROM and supple Chest: COMMONS NORMALS: normal inspection of the chest Resp: COMMON NORMALS: normal respiratory effort Cardio: COMMON NORMALS: regular rate, regular rhythm and No murmurs present (Cardio) RATE: regular rate RHYTHM: regular rhythm Extremity: COMMON NORMALS: normal to inspection and full ROM Neuro: COMMON NORMALS: patient oriented x3, moves all extremities and no focal motor deficits Psych: COMMON NORMALS: mental status grossly normal, Normal thought process present and cooperative THOUGHT PROCESS: Normal thought process present Skin: COMMON NORMALS: no rashes or lesions noted and no wounds GENERAL SKIN EXAM: no rashes or lesions noted Course 2 Vital Signs: Vital signs: Vital Signs Temperature 98.4 F 06/25/24 19:51 Pulse Rate 78 06/25/24 20:58 Respiratory Rate 15 06/25/24 20:58 Blood Pressure 116/76 06/25/24 20:58 Pulse Oximetry 97 06/25/24 20:58 Oxygen Delivery Me thod Room Air 06/25/24 20:58 MDM - Seizure MDM Narrative Medical decision making narrative: Patient presents here with seizure history of seizures and hit his head head CT here is normal blood work here is normal patient stable for discharge follow-up PCP return if worsening. Lab Data 06/25/24 19:39 06/25/24 19:39 Labs: Radiology Impressions Head CT 06/25/24 19:56 IMPRESSION: 1. No acute intracranial abnormality. 2. Left middle cranial fossa stable 19 mm arachnoid cyst again seen. Laboratory Results WBC 10.67 10^3/uL (3.29-11.43) 06/25/24 19:39 RBC 5.53 10^6/uL (3.85-5.65) 06/25/24 19:39 Hgb 13.30 g/dL (11.27-16.99) 06/25/24 19:39 Hct 44.6 % (37-53) 06/25/24 19:39 MCV 80.7 fl (82-101) L 06/25/24 19:39 MCH 24.1 pg (27-33) L 06/25/24 19:39 MCHC 29.8 g/dL (30-55) L 06/25/24 19:39 RDW 14.8 % (12.1-15.1) 06/25/24 19:39 Plt Count 262 10^3/cmm (157-399) 06/25/24 19:39 MPV 11.8 fL (7.4-10.4) H 06/25/24 19:39 Neut % (Auto) 53.5 % 06/25/24 19:39 Lymph % (Auto) 33.5 % 06/25/24 19:39 [place] % (Auto) 9.2 % 06/25/24 19:39 Eos % (Auto) 2.9 % 06/25/24 19:39 Baso % (Auto) 0.7 % 06/25/24 19:39 Neut # (Auto) 5.72 10^3/uL (1.8-7.7) 06/25/24 19:39 Lymph # (Auto) 3.6 10^3/uL (0.8-4.8) 06/25/24 19:39 [place] # (Auto) 1.0 10^3/uL (0.2-0.9) H 06/25/24 19:39 Eos # (Auto) 0.3 10^3/uL (0.0-0.8) 06/25/24 19:39 Baso # (Auto) 0.1 10^3/uL (0.0-0.1) 06/25/24 19:39 Nucleated RBC % (auto) 0 % 06/25/24 19:39 Nucleated RBCs # 0.0 /100WBC 06/25/24 19:39 Sodium 140 mmol/L (136-145) 06/25/24 19:39 Potassium 3.3 mmol/L (3.5-5.1) L 06/25/24 19:39 Chloride 95 mmol/L (98-107) L 06/25/24 19:39 Carbon Dioxide 14 mmol/L (22-29) L 06/25/24 19:39 Anion Gap 34.3 (5-19) H 06/25/24 19:39 BUN 9 mg/dL (6-20) 06/25/24 19:39 Creatinine 0.9 mg/dL (0.7-1.2) 06/25/24 19:39 GFR Calculation 104.6 mL/min (90-130) 06/25/24 19:39 Glucose 101 mg/dL (65-115) 06/25/24 19:39 Calculated Osmolality 289 mOsm/kg (285-295) 06/25/24 19:39 Calcium 9.6 mg/dL (8.5-10.5) 06/25/24 19:39 Total Bilirubin 0.4 mg/dL (0.15-1.2) 06/25/24 19:39 AST 21 U/L (0-40) 06/25/24 19:39 ALT 13 U/L (0-41) 06/25/24 19:39 Alkaline Phosphatase 110 U/L (40-130) 06/25/24 19:39 Total Protein 8.3 g/dL (6.6-8.7) 06/25/24 19:39 Albumin 5.0 g/dL (3.5-5.2) 06/25/24 19:39 Globulin 3.3 g/dL (1.3-4.6) 06/25/24 19:39 Ethyl Alcohol < 10 mg/dL (0-10) 06/25/24 19:39 All radiology interpretation(s) finalized by discharge Discharge Plan Discharge Patient Disposition: Home Clinical Impression: Generalized seizure Condition: Stable Prescriptions: No Action alprazolam 0.5 mg tablet 0.5 mg PO TID PRN (Reason: anxiety) 30 Days Qty: 90 2RF levetiracetam 500 mg tablet 500 mg PO DAILY PRN (Reason: takes when he thinks he needs it) hydrocodone-acetaminophen 5-325 mg tablet 1 tab PO Q6H PRN (Reason: pain) Qty: 14 0RF ondansetron 4 mg tablet,disintegrating 4 mg PO Q6H PRN (Reason: nausea and vomiting) Qty: 14 0RF Discharge Orders: Discharge ED (Routine); Ordered 06/25/24 Ordered By: Ike Hughes Referrals: Nicci Melendrez MD [Primary Care Provider] - Discharge Diet: Advance as tolerated Discharge Activity: Resume usual activity Patient Instructions: Generalized Tonic Clonic Seizures (ED) Coding Level of Care Code ED Con[employer] Layer for Jah Phillips
[2024-06-25] MEDS: levETIRAcetam 1,000 MG/100 ML PREMIX 400 MG IV (20:10)
[2024-06-25 20:12] LABS: Basophils # 0.1 10^3/uL (0.0-0.1); Basophils % 0.7 %; Eosinophils # 0.3 10^3/uL (0.0-0.8); Eosinophils % 2.9 %; Hematocrit 44.6 % (37-53); Lymphocytes # 3.6 10^3/uL (0.8-4.8); Lymphocytes % 33.5 %; Mean Corpuscular HGB Conc 29.8 g/dL (30-55); Mean Corpuscular Hemoglobin 24.1 pg (27-33); Mean Corpuscular Volume 80.7 fl (82-101); Mean Platelet Volume 11.8 fL (7.4-10.4); Monocytes % 9.2 %; Neutrophils # 5.72 10^3/uL (1.8-7.7); Neutrophils % 53.5 %; Nucleated Red Blood Cells % 0 %; Platelet Count 262 10^3/cmm (157-399); Red Blood Count 5.53 10^6/uL (3.85-5.65); Red Cell Distribution Width 14.8 % (12.1-15.1); White Blood Count 10.67 10^3/uL (3.29-11.43)
[2024-06-25 20:14] VITALS: BP 130/83; PULSE 91; RESP 16; O2SAT 96
[2024-06-25 20:32] LABS: Alanine Aminotransferase 13 U/L (0-41); Alkaline Phosphatase 110 U/L (40-130); Anion Gap 34.3 (5-19); Aspartate Amino Transferase 21 U/L (0-40); Blood Urea Nitrogen 9 mg/dL (6-20); Calcium 9.6 mg/dL (8.5-10.5); Carbon Dioxide 14 mmol/L (22-29); Chloride 95 mmol/L (98-107); Creatinine Clr Calc Pharmacy 107.2879; Globulin 3.3 g/dL (1.3-4.6); Glomerular Filtration Rate 104.6 mL/min (90-130); Glucose 101 mg/dL (65-115); Osmolality Calculated 289 mOsm/kg (285-295); Potassium 3.3 mmol/L (3.5-5.1); Sodium 140 mmol/L (136-145); Total Bilirubin 0.4 mg/dL (0.15-1.2); Total Protein 8.3 g/dL (6.6-8.7)
[2024-06-25 20:35] LABS: Alcohol Level < 10 mg/dL (0-10)
[2024-06-25 20:58] VITALS: BP 116/76; PULSE 78; RESP 15; O2SAT 97
[2024-06-25] MEDS: sodium chloride 0.9% 1,000 ML 999 ML IV (20:58)
[2024-06-25 21:15] VITALS: BP 122/73; PULSE 61; RESP 16; O2SAT 98
[2024-06-25 21:18] VITALS: BP 122/73; PULSE 61; RESP 16; TEMP 36.9; O2SAT 98
== END 2024-06-25 21:19 | disposition home or self-care (01) ==
PROVIDERS: Emergency Provider Emergency Medicine; PCP Family Medicine
DX: G40.409 Other generalized epilepsy and epileptic syndromes, not intractable, without status epilepticus (principal); S00.83XA Contusion of other part of head, initial encounter; Z72.0 Tobacco use; W18.39XA Other fall on same level, initial encounter
CPT/HCPCS: 70450; 80053; 80307; 85025; 96365; 99285; J1953; J7030

== ENCOUNTER 2024-07-28 13:15 | Outpatient (CLI) | payer BC, MEDICAID, SELFPAY ==
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
== END 2024-07-28 13:16 | disposition home or self-care (01) ==
LOC: RAD 13:16
PROVIDERS: PCP Family Medicine; Visit Provider Family Medicine
DX: I82.402 Acute embolism and thrombosis of unspecified deep veins of left lower extremity (principal)
CPT/HCPCS: 93971

== ENCOUNTER 2025-02-06 22:41 | Emergency (ER) | payer BC, MEDICAID, SELFPAY ==
[2025-02-06 23:03] VITALS: BP 145/93; PULSE 67; RESP 20; TEMP 36.6; O2SAT 100; BMI 19.8
--- NOTE | 2025-02-06 23:29 | W.ED.EPISTAX ---
Documented by User: AXEL Jara 02/07/25 01:06 HPI - Epistaxis General: Chief complaint: Epistaxis Stated complaint: Nose bleeding for 5 HRs Time Seen by Provider: 02/06/25 22:46 Source: patient Mode of arrival: ambulatory Limitations: no limitations History of Present Illness: Patient is a 24-year-old male here for complaints of a nosebleed that started several hours ago. No known injury or trauma. Patient has had previous nosebleeds. No history of hypertension. He is not on anticoagulation. MD complaint: epistaxis Location: right nostril Onset (ago): hour(s) Duration: intermittent Context: history of previous Associated symptoms: Reports no associated symptoms; Deny fever(s), headache(s), sinus pain or vomiting Treatment prior to arrival: stuffed nose with tissue Related Data Home Medications ?Medication ?Instructions ?Recorded ?Confirmed levetiracetam 500 mg tablet 500 mg PO DAILY PRN takes when he 01/31/24 06/25/24 thinks he needs it Previous Rx's ?Medication ?Instructions ?Recorded hydrocodone 5 mg-acetaminophen 325 1 tab PO Q6H PRN pain #14 tabs 01/31/24 mg tablet ondansetron 4 mg disintegrating 4 mg PO Q6H PRN nausea and 01/31/24 tablet vomiting #14 tabs alprazolam 0.5 mg tablet 0.5 mg PO TID PRN anxiety 30 days 12/29/24 #90 tabs potassium chloride 20 mEq 20 meq PO DAILY #7 tabs 02/07/25 tablet,extended release (K-Tab) Allergies Allergy/AdvReac Type Severity Reaction Status Date / Time No Known Allergies Allergy Verified 06/25/24 10:36 Review of Systems Const: Denies: fever(s) Eyes: Denies: change in vision ENMT: Reports: epistaxis; Denies: throat pain, odynophagia, mouth pain, dental pain, ear or mastoid pain, nasal congestion, nasal obstruction or sinus pain Card: Denies: chest pain Resp: Denies: dyspnea GI: Denies: nausea or vomiting Musc: Denies: neck pain Neuro: Denies: headache(s) PFSH ED PFSH: Medical History Social anxiety disorder No significant past medical history Surgical History No significant past surgical history Social History Smoking and tobacco/nicotine status: current every day tobacco/nicotine user (vape) Substance/Drug Use: current Physical Exam Const: COMMON NORMALS: no acute distress, average body habitus, patient oriented x3, no limitations, healthy appearing, alert and well nourished HENMT: COMMON NORMALS: normocephalic and atraumatic HEAD & SCALP: normal to inspection, normocephalic and atraumatic FACE & SINUS: normal facial exam and sinuses nontender NOSE: Epistaxis present on the right THROAT: posterior oropharynx normal and tonsils normal Eye: GENERAL EYE: appearance normal, both eyes and all related structures Neck/C-Spine: COMMON NORMALS: no lymphadenopathy GENERAL: Yes normal visual inspection Neuro: COMMON NORMALS: patient oriented x3 SENSORIUM/ORIENTATION: Yes alert Procedures Epistaxis Control Nostril: right Nose Prepped With: oxymetazoline Direct Inspection: yes Cautery Used: none Device Inserted: hemostatic balloon Patient Tolerated Procedure: well Course Reevaluation(s): Reevaluation #1: Attempted anterior pack but bleeding did not subside. This was removed. Posterior pack attempted but unsuccessful due to patient non-cooperative and severe anxiety. Will attempt to medicate with IV Ativan and re-attempt. Care transferred to Dr. Marie due to shift change. ES Vital Signs: Vital signs: Vital Signs Temperature 97.8 F 02/06/25 23:03 Pulse Rate 78 02/07/25 03:01 Respiratory Rate 16 02/07/25 03:01 Blood Pressure 134/90 02/07/25 03:01 Pulse Oximetry 98 02/07/25 03:01 Oxygen Delivery Me thod Room Air 02/07/25 01:00 MDM - Epistaxis Lab Data 02/07/25 01:37 02/07/25 01:37 Laboratory Results WBC 10.92 10^3/uL (3.29-11.43) 02/07/25 01:37 RBC 4.94 10^6/uL (3.85-5.65) 02/07/25 01:37 Hgb 12.10 g/dL (11.27-16.99) 02/07/25 01:37 Hct 38.5 % (37-53) 02/07/25 01:37 MCV 77.9 fl (82-101) L 02/07/25 01:37 MCH 24.5 pg (27-33) L 02/07/25 01:37 MCHC 31.4 g/dL (30-55) 02/07/25 01:37 RDW 14.4 % (12.1-15.1) 02/07/25 01:37 Plt Count 278 10^3/cmm (157-399) 02/07/25 01:37 MPV 12.1 fL (7.4-10.4) H 02/07/25 01:37 Neut % (Auto) 69.3 % 02/07/25 01:37 Lymph % (Auto) 22.4 % 02/07/25 01:37 [place] % (Auto) 7.0 % 02/07/25 01:37 Eos % (Auto) 0.6 % 02/07/25 01:37 Baso % (Auto) 0.5 % 02/07/25 01:37 Neut # (Auto) 7.57 10^3/uL (1.8-7.7) 02/07/25 01:37 Lymph # (Auto) 2.5 10^3/uL (0.8-4.8) 02/07/25 01:37 [place] # (Auto) 0.8 10^3/uL (0.2-0.9) 02/07/25 01:37 Eos # (Auto) 0.1 10^3/uL (0.0-0.8) 02/07/25 01:37 Baso # (Auto) 0.1 10^3/uL (0.0-0.1) 02/07/25 01:37 Nucleated RBC % (auto) 0 % 02/07/25 01:37 Nucleated RBCs # 0.0 /100WBC 02/07/25 01:37 Sodium 140 mmol/L (136-145) 02/07/25 01:37 Potassium 2.8 mmol/L (3.5-5.1) L* 02/07/25 01:37 Chloride 101 mmol/L (98-107) 02/07/25 01:37 Carbon Dioxide 23 mmol/L (22-29) 02/07/25 01:37 Anion Gap 18.8 (5-19) 02/07/25 01:37 BUN 17 mg/dL (6-20) 02/07/25 01:37 Creatinine 0.6 mg/dL (0.7-1.2) L 02/07/25 01:37 GFR Calculation 165.5 mL/min (90-130) H 02/07/25 01:37 Glucose 104 mg/dL (65-115) 02/07/25 01:37 Calculated Osmolality 292 mOsm/kg (285-295) 02/07/25 01:37 Calcium 9.6 mg/dL (8.5-10.5) 02/07/25 01:37 Total Bilirubin 0.5 mg/dL (0.15-1.2) 02/07/25 01:37 AST 15 U/L (0-40) 02/07/25 01:37 ALT 8 U/L (0-41) 02/07/25 01:37 Alkaline Phosphatase 113 U/L (40-130) 02/07/25 01:37 Total Protein 8.6 g/dL (6.6-8.7) 02/07/25 01:37 Albumin 5.2 g/dL (3.5-5.2) 02/07/25 01:37 Globulin 3.4 g/dL (1.3-4.6) 02/07/25 01:37 Discharge Plan Discharge Patient Disposition: Home Clinical Impression: Epistaxis, Acute hypokalemia Condition: Stable Prescriptions: New potassium chloride [K-Tab] 20 mEq tablet extended release 20 meq PO DAILY Qty: 7 0RF No Action alprazolam 0.5 mg tablet 0.5 mg PO TID PRN (Reason: anxiety) 30 Days Qty: 90 3RF levetiracetam 500 mg tablet 500 mg PO DAILY PRN (Reason: takes when he thinks he needs it) hydrocodone-acetaminophen 5-325 mg tablet 1 tab PO Q6H PRN (Reason: pain) Qty: 14 0RF ondansetron 4 mg tablet,disintegrating 4 mg PO Q6H PRN (Reason: nausea and vomiting) Qty: 14 0RF Discharge Orders: Discharge ED (Routine); Ordered 02/07/25 Ordered By: Robert Marie Referrals: Nicci Melendrez MD [Primary Care Provider] - 1 week Patient Instructions: Hypokalemia (ED), Epistaxis - Adult Activity Restrictions/Additional Instructions: Please follow-up with your PCP within next 7 days for further evaluation treatment and recheck of your potassium. Thank you for choosing [facility] for your healthcare needs today. Please realize that you were seen in the emergency department and that we are providing you with an emergency medical screening exam and this may not be a complete and all exclusive of all testing and/or medical workup we may need to determine your element or severity of your illness. It is very important that you follow-up as instructed with your primary care provider or specialist for the additional evaluation and to discuss your medical treatment plan. You may return to the emergency department should you have concerns or if your condition changes or worsens in any way. Print Language: [place] Island[place] Coding Level of Care Code ED [employer]r for [employer]g [employer] Documented by User: Robert Marie DO 02/07/25 03:07 HPI - Epistaxis General: Chief complaint: Epistaxis Stated complaint: Nose bleeding for 5 HRs Time Seen by Provider: 02/06/25 22:46 Related Data Home Medications ?Medication ?Instructions ?Recorded ?Confirmed levetiracetam 500 mg tablet 500 mg PO DAILY PRN takes when he 01/31/24 06/25/24 thinks he needs it Previous Rx's ?Medication ?Instructions ?Recorded hydrocodone 5 mg-acetaminophen 325 1 tab PO Q6H PRN pain #14 tabs 01/31/24 mg tablet ondansetron 4 mg disintegrating 4 mg PO Q6H PRN nausea and 01/31/24 tablet vomiting #14 tabs alprazolam 0.5 mg tablet 0.5 mg PO TID PRN anxiety 30 days 12/29/24 #90 tabs potassium chloride 20 mEq 20 meq PO DAILY #7 tabs 02/07/25 tablet,extended release (K-Tab) Allergies Allergy/AdvReac Type Severity Reaction Status Date / Time No Known Allergies Allergy Verified 06/25/24 10:36 PFSH ED PFSH: Medical History Social anxiety disorder No significant past medical history Surgical History No significant past surgical history Social History Smoking and tobacco/nicotine status: current every day tobacco/nicotine user (vape) Substance/Drug Use: current Course Vital Signs: Vital signs: Vital Signs Temperature 97.8 F 02/06/25 23:03 Pulse Rate 78 02/07/25 03:01 Respiratory Rate 16 02/07/25 03:01 Blood Pressure 134/90 02/07/25 03:01 Pulse Oximetry 98 02/07/25 03:01 Oxygen Delivery Me thod Room Air 02/07/25 01:00 MDM - Epistaxis Medical Decision Making Patient care turned over to myself, lab work was obtained, patient potassium come back at 2.8. Patient will be given 40 mEq orally potassium here in ER and discharged home on 20 mEq a day for the next 7 days. Patient to follow-up with his PCP within next 7 days to have his potassium rechecked. If his nose starts uncontrolled with bleeding again he should return to the ER. Lab Data 02/07/25 01:37 02/07/25 01:37 Laboratory Results WBC 10.92 10^3/uL (3.29-11.43) 02/07/25 01:37 RBC 4.94 10^6/uL (3.85-5.65) 02/07/25 01:37 Hgb 12.10 g/dL (11.27-16.99) 02/07/25 01:37 Hct 38.5 % (37-53) 02/07/25 01:37 MCV 77.9 fl (82-101) L 02/07/25 01:37 MCH 24.5 pg (27-33) L 02/07/25 01:37 MCHC 31.4 g/dL (30-55) 02/07/25 01:37 RDW 14.4 % (12.1-15.1) 02/07/25 01:37 Plt Count 278 10^3/cmm (157-399) 02/07/25 01:37 MPV 12.1 fL (7.4-10.4) H 02/07/25 01:37 Neut % (Auto) 69.3 % 02/07/25 01:37 Lymph % (Auto) 22.4 % 02/07/25 01:37 Mellette % (Auto) 7.0 % 02/07/25 01:37 Eos % (Auto) 0.6 % 02/07/25 01:37 Baso % (Auto) 0.5 % 02/07/25 01:37 Neut # (Auto) 7.57 10^3/uL (1.8-7.7) 02/07/25 01:37 Lymph # (Auto) 2.5 10^3/uL (0.8-4.8) 02/07/25 01:37 Mel[place] # (Auto) 0.8 10^3/uL (0.2-0.9) 02/07/25 01:37 Eos # (Auto) 0.1 10^3/uL (0.0-0.8) 02/07/25 01:37 Baso # (Auto) 0.1 10^3/uL (0.0-0.1) 02/07/25 01:37 Nucleated RBC % (auto) 0 % 02/07/25 01:37 Nucleated RBCs # 0.0 /100WBC 02/07/25 01:37 Sodium 140 mmol/L (136-145) 02/07/25 01:37 Potassium 2.8 mmol/L (3.5-5.1) L* 02/07/25 01:37 Chloride 101 mmol/L (98-107) 02/07/25 01:37 Carbon Dioxide 23 mmol/L (22-29) 02/07/25 01:37 Anion Gap 18.8 (5-19) 02/07/25 01:37 BUN 17 mg/dL (6-20) 02/07/25 01:37 Creatinine 0.6 mg/dL (0.7-1.2) L 02/07/25 01:37 GFR Calculation 165.5 mL/min (90-130) H 02/07/25 01:37 Glucose 104 mg/dL (65-115) 02/07/25 01:37 Calculated Osmolality 292 mOsm/kg (285-295) 02/07/25 01:37 Calcium 9.6 mg/dL (8.5-10.5) 02/07/25 01:37 Total Bilirubin 0.5 mg/dL (0.15-1.2) 02/07/25 01:37 AST 15 U/L (0-40) 02/07/25 01:37 ALT 8 U/L (0-41) 02/07/25 01:37 Alkaline Phosphatase 113 U/L (40-130) 02/07/25 01:37 Total Protein 8.6 g/dL (6.6-8.7) 02/07/25 01:37 Albumin 5.2 g/dL (3.5-5.2) 02/07/25 01:37 Globulin 3.4 g/dL (1.3-4.6) 02/07/25 01:37 All radiology interpretation(s) finalized by discharge Discharge Plan Discharge Patient Disposition: Home Clinical Impression: Epistaxis, Acute hypokalemia Condition: Stable Prescriptions: New potassium chloride [K-Tab] 20 mEq tablet extended release 20 meq PO DAILY Qty: 7 0RF No Action alprazolam 0.5 mg tablet 0.5 mg PO TID PRN (Reason: anxiety) 30 Days Qty: 90 3RF levetiracetam 500 mg tablet 500 mg PO DAILY PRN (Reason: takes when he thinks he needs it) hydrocodone-acetaminophen 5-325 mg tablet 1 tab PO Q6H PRN (Reason: pain) Qty: 14 0RF ondansetron 4 mg tablet,disintegrating 4 mg PO Q6H PRN (Reason: nausea and vomiting) Qty: 14 0RF Discharge Orders: Discharge ED (Routine); Ordered 02/07/25 Ordered By: Robert Marie Referrals: Nicci Melendrez MD [Primary Care Provider] - 1 week Patient Instructions: Hypokalemia (ED), Epistaxis - Adult Activity Restrictions/Additional Instructions: Please follow-up with your PCP within next 7 days for further evaluation treatment and recheck of your potassium. Thank you for choosing [facility] for your healthcare needs today. Please realize that you were seen in the emergency department and that we are providing you with an emergency medical screening exam and this may not be a complete and all exclusive of all testing and/or medical workup we may need to determine your element or severity of your illness. It is very important that you follow-up as instructed with your primary care provider or specialist for the additional evaluation and to discuss your medical treatment plan. You may return to the emergency department should you have concerns or if your condition changes or worsens in any way. Print Language: [place] Island[place] Coding Level of Care Code ED [employer] Rep[employer]r for Jah Phillips
[2025-02-06 23:35] VITALS: BP 98/62; PULSE 53; RESP 16; O2SAT 96
[2025-02-06] MEDS: oxymetazoline 0.05% Nasal Spray 15 mL 2 SPRAY NOSTRIL-R (23:46)
[2025-02-07] VITALS: BP 148/76; PULSE 73; RESP 16; O2SAT 97
[2025-02-07 00:07] VITALS: BP 142/91; PULSE 62; RESP 16; O2SAT 99
[2025-02-07] MEDS: LORazepam 2 mg/mL INJ 1 mL IVP (00:58)
[2025-02-07 01:00] VITALS: BP 142/78; PULSE 78; RESP 16; O2SAT 100
[2025-02-07 01:51] LABS: Basophils # 0.1 10^3/uL (0.0-0.1); Basophils % 0.5 %; Eosinophils # 0.1 10^3/uL (0.0-0.8); Eosinophils % 0.6 %; Hematocrit 38.5 % (37-53); Lymphocytes # 2.5 10^3/uL (0.8-4.8); Lymphocytes % 22.4 %; Mean Corpuscular HGB Conc 31.4 g/dL (30-55); Mean Corpuscular Hemoglobin 24.5 pg (27-33); Mean Corpuscular Volume 77.9 fl (82-101); Mean Platelet Volume 12.1 fL (7.4-10.4); Monocytes # 0.8 10^3/uL (0.2-0.9); Neutrophils # 7.57 10^3/uL (1.8-7.7); Neutrophils % 69.3 %; Nucleated Red Blood Cells % 0 %; Platelet Count 278 10^3/cmm (157-399); Red Blood Count 4.94 10^6/uL (3.85-5.65); Red Cell Distribution Width 14.4 % (12.1-15.1); White Blood Count 10.92 10^3/uL (3.29-11.43)
[2025-02-07 02:11] LABS: Alanine Aminotransferase 8 U/L (0-41); Albumin Level 5.2 g/dL (3.5-5.2); Alkaline Phosphatase 113 U/L (40-130); Anion Gap 18.8 (5-19); Aspartate Amino Transferase 15 U/L (0-40); Blood Urea Nitrogen 17 mg/dL (6-20); Calcium 9.6 mg/dL (8.5-10.5); Carbon Dioxide 23 mmol/L (22-29); Chloride 101 mmol/L (98-107); Creatinine Clr Calc Pharmacy 201.8067; Globulin 3.4 g/dL (1.3-4.6); Glomerular Filtration Rate 165.5 mL/min (90-130); Glucose 104 mg/dL (65-115); Osmolality Calculated 292 mOsm/kg (285-295); Sodium 140 mmol/L (136-145); Total Bilirubin 0.5 mg/dL (0.15-1.2); Total Protein 8.6 g/dL (6.6-8.7)
[2025-02-07 02:14] LABS: Potassium 2.8 mmol/L (3.5-5.1)
[2025-02-07] MEDS: potassium chloride ER 20 mEq Tablet 40 MEQ PO (02:47)
[2025-02-07 03:01] VITALS: BP 134/90; PULSE 78; RESP 16; O2SAT 98
== END 2025-02-07 03:04 | disposition home or self-care (01) ==
PROVIDERS: Emergency Provider Physician Assistant; PCP Family Medicine
DX: R04.0 Epistaxis (principal); E87.6 Hypokalemia
CPT/HCPCS: 36415; 80053; 85025; 96374; 99284; J2060; J9999

== ENCOUNTER → 2025-05-11 12:11 | Outpatient (BNVA) | payer BC, MEDICAID, SELFPAY | PROVIDERS: PCP Family Medicine; Visit Provider Family Medicine | DX: E87.6 Hypokalemia (principal) | CPT/HCPCS: 80048 ==